=== PATIENT | female | born 1945 | race Caucasian/White ===

== ENCOUNTER 2016-06-20 16:23 | Emergency (ER) | payer MEDICARE ==
[~2016-06-20] VITALS: Ht 166.4 cm; Wt 65.5 kg
[~2016-06-20 16:23] MED LIST: LOV40 SUBQ; NICO1PAT5 TOPICAL; OXYC5TAB72 PO; POLY17PO6 PO; PREN1TAB25 PO; SENN-133 PO
[2016-06-20 16:26] VITALS: BP 194/103; PULSE 95; RESP 16; O2SAT 98
[2016-06-20 16:53] LABS: BASOPHILS % (AUTO) 0.2 % (0-3); EOSINOPHILS % (AUTO) 0.1 % (0-5); MONOCYTES % (AUTO) 3.1 % (4-12); Mean Corpuscular Hemoglobin 29.1 pg (27.0-35.0); Mean Corpuscular Volume 85.7 fL (81-100); NEUTROPHILS % (AUTO) 88.4 % (40-74); Platelet Count 461 bil/L (150-400)
[2016-06-20 17:13] LABS: Magnesium 1.6 mg/dL (1.6-2.6)
[2016-06-20] MEDS ORDERED: Ondansetron 2 mg/mL 2 mL Inj ONE (17:24)
--- NOTE | 2016-06-20 17:59 | ED.REPORT ---
HPI-General Illness Date of Service Jun 20, 2016 ED Provider: Dr. Efrem Mcarthur D.O. A 70 year old female with a medical history including hypertension, EDDY, peripheral vascular disease, osteoarthritis, and chronic hip pain presents to the ED with back pain and RUQ abdominal pain onset three weeks ago. The patient also reports nausea, vomiting, pleuritic pain, and occasional pain in her left breast. She has been seen at the [facility] ED and by her PCP since onset of symptoms. The patient takes prescribed oxycodone regularly (10mg qid) for hip pain after a fracture in 03/2015, but she has not taken this in 36 hours. She denies diarrhea, dysuria, or other symptoms. Nursing Notes Stated Complaint: PAIN UNDER RIBS TO BACK ON SHOULDER BLADE Chief Complaint: Female Abdominal Pain Nursing Notes Reviewed: Yes Allergies: Coded Allergies: No Known Allergies (Unverified , 06/20/16) Scheduled Enoxaparin (Lovenox) 40 Mg/0.4 Ml Syringe 40 MG SUBQ DAILY Nicotine 14 mg/24 hr Patch (Nicotine 14 mg/24 hr Patch) 1 Patch Patch 1 PATCH TOPICAL DAILY Vit#96/Ferrous Fum/FA ( Tablet) 1 Tablet Tablet 1 TABLET PO DAILY Scheduled PRN Polyethylene Glycol 3350 (Miralax) 17 Gm Powd.pack 17 GM PO DAILY PRN PRN For Constipation Sennosides (Senna) 8.6 Mg Tablet 17.2 MG PO BID PRN PRN For Constipation oxyCODONE (oxyCODONE) 5 Mg Tablet 5-10 MG PO Q6H PRN PRN FOR PAIN General Time Seen by MD: 17:58 Chief Complaint Abdominal pain (RUQ), Other (Back Pain) Hx Obtained From: Patient Arrived By: Walk-in Sudden in Onset?: Yes Onset Occurred: More than a week ago... (3 weeks) Symptom Duration: Since onset Location: : Abdomen (RUQ): Back: Chest (Left breast) Quality: Painful, Pleuritic Severity: Current: Moderate Severity: Maximum: Moderate Associated with: Reports: Nausea, Vomiting, Denies: Fever Pertinent Negative: Relieved by nothing Recent Healthcare: Recent doctor visit, Recent testing, Prior workup Similar Sx Previous: Yes Past Medical History Past Medical History Notes: Past Medical History Hx. Alcohol abuse Hypertension Patient reports EDDY Peripheral vascular disease Osteoarthritis, diffuse Chronic hip pain s/p fracture in 2014 Reports: Hypertension Past Surgical History Appendectomy Hysterectomy 2 elective abortions Rt elbow, unspecified surgery Lt knee surgery x [address] Dean (arthroscopy and Shepard cyst removal) Rt carpal tunnel release Smoking History Current Every Day Smoker Social History Alcohol Use: "Social" Drug Use: Denies drug use Other Social History: Ambulatory Status Independent Review of Systems Full Review of Systems Constitutional: Denies: Fever Respiratory: Reports: Pleuritic pain, Denies: Non-productive cough, Shortness of breath GI: Reports: Abdominal pain (RUQ), Nausea, Vomiting, Denies: Diarrhea Female: Denies: Dysuria Musculoskeletal: Reports: Back pain Complete sys rev & neg: except as marked. Physical Exam Vital Signs Vital Signs Date Time Temp Pulse Resp B/P Pulse Ox O2 Delivery O2 Flow Rate FiO2 06/20/16 23:50 68 24 147/62 98 Room Air 06/20/16 20:11 97 21 144/69 97 Room Air 06/20/16 16:26 36.1 95 16 194/103 98 Room Air Initial VS: Reviewed Head / Eyes: Atraumatic, Normocephalic ENT: Conjunctiva normal, No scleral icterus Neck: Supple, Full range of motion Respiratory: Breath sounds normal, Clear to auscultation, No respiratory distress Cardiovascular: Regular rate & rhythm, Heart sounds normal Skin: Warm, Dry Neurologic: Alert, Oriented, Nonfocal Psychiatric: Mood/affect normal, Behavior normal, Normal thought content General/Constitutional: Awake, Alert Distress / Hydration: Positive: Distress mild Abdomen: BS normoactive Tenderness/Guarding/Rebound: Positive: Guarding voluntary, Tender diffuse Interpretation & Diagnostics Lab Results Interpretation Result Diagram: 06/20/16 1641 06/20/16 1641 Test 06/20/16 16:41 06/20/16 16:48 06/20/16 22:27 06/20/16 22:52 White Blood Count 14.6th/mm3 (3.8-10.1) Red Blood Count 5.26mil/mm3 (3.90-5.20) Hemoglobin 15.3g/dL (12.0-15.6) Hematocrit 45.1% (35.0-46.0) Mean Corpuscular Volume 85.7fL (81-100) Mean Corpuscular Hemoglobin 29.1pg (27.0-35.0) Mean Corpuscular Hemoglobin Concent 33.9% (32.0-37.0) Red Cell Distribution Width 14.3% (12.3-15.4) Platelet Count 461bil/L (150-400) Neutrophils (%) (Auto) 88.4% (40-74) Lymphocytes (%) (Auto) 7.9% (14-46) Monocytes (%) (Auto) 3.1% (4-12) Eosinophils (%) (Auto) 0.1% (0-5) Basophils (%) (Auto) 0.2% (0-3) D-Dimer 1.3mg/L (<0.50) Sodium Level 127mEq/L (134-144) Potassium Level 3.3mEq/L (3.5-5.2) Chloride Level 86mEq/L (97-108) Carbon Dioxide Level 24mmol/L (18-29) Blood Urea Nitrogen 11mg/dL (8-27) Creatinine 0.54mg/dL (0.57-1.00) Estimat Glomerular Filtration Rate 160mL/min (>59) Glucose Level 149mg/dL (60-99) Calcium Level 9.4mg/dL (8.5-10.1) Magnesium Level 1.6mg/dL (1.6-2.6) Total Bilirubin 0.2mg/dL (0.0-1.2) Aspartate Amino Transf (AST/SGOT) 17U/L (0-50) Alanine Aminotransferase (ALT/SGPT) 10U/L (0-32) Alkaline Phosphatase 119U/L (25-165) Total Protein 8.5g/dL (6.4-8.4) Albumin 4.5g/dL (3.4-5.0) Lipase 16U/L (13-60) Hold [place] Top Tube Received (Received) Hold Purple Top Tube Received (Received) Hold Blue Top Tube Received (Received) Hold Red Top Tube Received (Received) Hold [place] Top Tube Received (Received) Urine Color Straw (YELLOW) Urine Appearance Slightly cloudy Urine pH 5.5 (5.0-8.0) Urine Specific [place] <1.005 (1.003-1.035) Urine Protein Negativemg/dL (NEG,TRACE) Urine Glucose (UA) Negativemg/dL (NEGATIVE) Urine Ketones Negativemg/dL (NEGATIVE) Urine Occult Blood Small (NEGATIVE) Urine Nitrite Negative (NEGATIVE) Urine Bilirubin Negative (NEGATIVE) Urine Urobilinogen Normalmg/dL (NORMAL) Urine Leukocyte Esterase Moderate (NEGATIVE) Urine RBC 0-2/hpf (0-2) Urine WBC 11-50/hpf (0-5) Urine Epithelial Cells Moderate/hpf (NONE-MOD) Urine Crystals None seen (NONE SEEN) Urine Bacteria Moderate/hpf (NONE-FEW) Urine Hyaline Casts None/lpf (NONE) Urine Granular Casts None seen (NONE SEEN) Urine Waxy Casts None seen (NONE SEEN) Urine Red Blood Cell Casts None seen (NONE SEEN) Urine White Blood Cell Casts None seen (NONE SEEN) Urine Mucus None seen (None Seen) Urine Trichomonas None seen (NONE SEEN) Urine Yeast None (NONE SEEN) Urinalysis Comment None Urine Culture Reflexed Indicated Troponin T 0.010ug/L (0.0-0.011) ECG Interpretation ECG Interpretation: Sinus rhythm rate [address] changes Time: 19:04 Interpreted by: ED physician CT Chest Interpretation IMPRESSION: 1. No acute process. 2. Small hiatal hernia. 3. Left apical lung nodule; followup is recommended as below. Fleischner Society criteria for SOLID lung nodule followup. Nodule size (mm)Low-risk patientHigh-risk [id number] follow-up neededFollow-up at 12 mo; if no change, no further follow-up>[id number] CT at 12 mo; if no change, no further follow-up needed.Initial follow-up CT at 6-12 mo, then 18-24 mo if no change. >6-8Initial follow-up CT at 6-12 mo, then 18-24 mo if no change. Initial follow-up CT at 3-6 mo, then 9-12 mo and 24 mo if no change. >8Follow-up CT at 3, 9, 24 mo. Or PET and/or biopsy.Same as for low-risk pts. Fleischner Society criteria for SUB-SOLID lung nodule followup. Solitary pure ground-glass nodules5 mm or lessNo followup needed. >5 mm3 mo follow-up CT to confirm persistence. Then annual CT for 3 years. Part-solid nodules3 mo follow-up CT to confirm persistence. If persistent with solid component <5 mm, annual CT for at least 3 years. If solid component is 5 mm or more, biopsy or surgical resection. Consider PET-CT for lesions > 10 mm. Multiple sub-solid nodulesPure ground glass nodules [address] at 2 and 4 years. Pure ground glass nodules >5 mm without dominant lesion. [address] to confirm persistence, then annual followup CT for at least 3 years. Dominant nodule(s) with part-solid or solid component. [address] to confirm persistence. If persistent, consider biopsy or surgical resection, loc if lesions have >5 mm solid component. Dictated by: Amador Moore M.D. on 06/20/2016 at 19:48 Study type: CT pulm angiogram Interpretation / Wet Read by: Interpret - Radiologist CT Abd / Pelvis Interpretation IMPRESSION: 1. No acute process. 2. Small hiatal hernia. Dictated by: Amador Moore M.D. on 06/20/2016 at 19:47 Study type: Abdominal CT IV contrast Re-Eval/Medical Decision Med Decision/Clinical Course CT chest abdomen pelvis were all reassuring. Surgical troponins were negative. PE ruled out. Acute abdomen ruled out. Patient is adequately treated. I suspect there is a component of opiate withdrawal. Her urine was infected. She received Rocephin. She will be on antibiotics and close outpatient follow- up. She feels comfortable going home taking her oxycodone now. At discharge she looked and felt much better. Source of Hx: Old records Time of Eval: 19:09 Patient Status: Condition improved Re-Evaluation/Progress Note: Patient rechecked. Time of Eval: 23:45 Patient Status: Condition improved Re-Evaluation/Progress Note: Patient is resting comfortably and ready to be discharged. Discussed with patient CT and lab results, diagnosis, and plan for discharge. Follow-up and return to the ER instructions given. Patient agrees with plan for care and all questions were addressed. Counseled Regarding: Diagnosis, Lab results, Need for follow-up, When/why to return to ED Discharge & Departure Primary Impression: Abdominal pain Abdominal location: generalized Qualified Code: R10.84 - Generalized abdominal pain Additional Impressions: Urinary tract infection Urinary tract infection type: acute cystitis Hematuria presence: without hematuria Qualified Code: N30.00 - Acute cystitis without hematuria Chest pain on breathing Disposition: Home Discharge Condition All VS Reviewed: Yes Condition: Improved Patient Instructions: Acute Abdominal Pain (ED), Chest Pain (ED), Urinary Tract Infection in Women (DC) Additional Instructions: The CAT scan of your chest did not show a blood clot. You do have a pulmonary nodule that will require follow-up imaging. Your primary care provider can set this up with you. Discuss this at your follow up appointment. The CAT scan of your abdomen did not show any acute pathology either. Your heart blood tests were normal. Your urine does show indicators of infection. Take your oxycodone as prescribed by Dr. Milian. Take Bactrim twice daily for [address] Milian's office tomorrow morning to set up a close follow-up. Do not drive tonight. Return if any problems or any worsening symptoms. Referrals: Chris Milian MD (PCP) Scribe Attestation Portions of this note were transcribed by Tricia Esparza. I, Dr. Mcarthur, personally performed the history, physical exam, and medical decision-making; I reviewed and confirmed the accuracy of the information in the transcribed note. Signed by: Franklin Mcintyre, 06/21/2016, 01:05 copies to: Chris Milian MD, Todd P DO Jun 20, 2016 17:59 TRICIA ESPARZA Jun 20, 2016 18:27
[2016-06-20] MEDS ORDERED: 0.9% Sodium Chloride 1,000 ML IV SCH (18:35)
[2016-06-20] MEDS ORDERED: Ondansetron 2 mg/mL 2 mL Inj IVPUSH PRN (18:35)
[2016-06-20] MEDS: HYDROmorphone 0.5 mg/0.5 mL iSecure Syringe IVPUSH PRN ×2 (19:15→21:26)
--- NOTE | 2016-06-20 19:50 | DRSVH ---
PROCEDURE: CT ABDOMEN AND PELVIS WITH CONTRAST ([id number]) INDICATIONS: pleuritic chest pain, abd pain, TECHNIQUE: After the administration of intravenous contrast, 5 mm thick sections acquired from the diaphragm to the symphysis. 5 mm coronal and sagittal reformats were acquired. For radiation dose reduction, the following was used: automated exposure control, adjustment of mA and/or kV according to patient siz e. COMPARISON: None. FINDINGS: Image quality: Excellent. ABDOMEN: Lung bases: Lung bases are clear. Heart size is normal. Solid organs: Liver and spleen are normal in size and enhancement. Gallbladder is within normal harris its. Biliary system is non dilated. Pancreas enhances normally. No adrenal nodules. Kidneys demon strate normal size and enhancement, without hydronephrosis. Peritoneum and bowel: Small hiatal hernia. Bowel loops demonstrate normal wall thickness and caliber . No free fluid or air. Nodes and vessels: No retroperitoneal or mesenteric adenopathy by size criteria. Aorta and inferior vena cava are normal in size. Miscellaneous: No ventral hernias. PELVIS: Genitourinary: Bladder wall thickness is normal. Miscellaneous: No inguinal hernias or adenopathy. Bones: No suspicious bony lesions. No vertebral body compression fractures. IMPRESSION: 1. No acute process. 2. Small hiatal hernia. Dictated by: Amador Moore M.D. on 06/20/2016 at 19:47 Approved by: Amador Moore M.D. on 06/20/2016 at 19:48
--- NOTE | 2016-06-20 19:52 | DRSVH ---
PROCEDURE: CT ANGIO CHEST PULMONARY EMBOLISM ([id number]) INDICATIONS: pleuritic chest pain, abd pain, TECHNIQUE: After the administration of intravenous contrast, 2 mm thick sections acquired from the pulmonary api mulu to the posterior costophrenic angles. 3-dimensional maximum intensity projection (MIP) coronal a nd sagittal reformats were then acquired through the thorax. For radiation dose reduction, the follo wing was used: automated exposure control, adjustment of mA and/or kV according to patient size. COMPARISON: None. FINDINGS: Image quality: Excellent. Pulmonary arteries: Pulmonary arteries are normal in size, and demonstrate no intraluminal filling d efects to suggest central pulmonary embolism. Lungs and pleura: 4 mm diameter nodule within the left lateral lung apex. No pleural effusions or pne umothorax. Central and peripheral airways are patent. Mediastinum: Heart size is normal, without pericardial effusion. No mediastinal or hilar adenopathy . Thoracic aorta is normal in caliber and enhancement. Esophagus is normal in caliber. There is a s mall hiatal hernia. Bones and chest wall: No suspicious bony lesions. Ribs and thoracic spine appear intact throughout. Thyroid gland is within normal limits. No axillary or supraclavicular adenopathy. Abdomen: Visualized upper abdominal solid organs appear normal in the early arterial phase of enhanc ement. IMPRESSION: 1. No acute process. 2. Small hiatal hernia. 3. Left apical lung nodule; followup is recommended as below. Fleischner Society criteria for SOLID lung nodule followup. Nodule size (mm)Low-risk patientHigh-risk [id number] follow-up neededFollow-up at 12 mo; if no tate e, no further follow-up>0-9Ovoful-aw CT at 12 mo; if no change, no further follow-up needed.Initial f ollow-up CT at 6-12 mo, then 18-24 mo if no change. >6-8Initial follow-up CT at 6-12 mo, then 18-24 mo if no change. Initial follow-up CT at 3-6 mo, then 9-12 mo and 24 mo if no change. >8Follow-up CT at 3, 9, 24 mo. Or PET and/or biopsy.Same as for low-risk pts. Fleischner Society criteria for SUB-SOLID lung nodule followup. Solitary pure ground-glass nodules5 mm or lessNo followup needed. >5 mm3 mo follow-up CT to confirm persistence. Then annual CT for 3 years. Part-solid nodules3 mo follow-up CT to confirm persistence . If persistent with solid component <5 mm, annual CT for at least 3 years. If solid component is 5 mm or more, biopsy or surgical resection. Consider PET-CT for lesions > 10 mm. Multiple sub-solid nodulesPure ground glass nodules [address] at 2 and 4 years. Pure ground glass nodules >5 mm without dominant lesion. [address] to confirm persistence, then annual followup CT for at least 3 years. Dominant nodule(s) with part-solid or solid component. [address] to confirm persistence. If persistent, consider biopsy or surgical resection, loc if lesions have >5 m m solid component. Dictated by: Amador Moore M.D. on 06/20/2016 at 19:48 Approved by: Amador Moore M.D. on 06/20/2016 at 19:50
[2016-06-20 20:11] VITALS: BP 144/69; PULSE 97; RESP 21; O2SAT 97
[2016-06-20 22:34] LABS: APPEARANCE,URINE SLIGHTLY CLOUDY (CLEAR,HAZY); COLOR,URINE STRAW (YELLOW); OCCULT BLOOD,URINE SMALL (NEGATIVE); PH,URINE 5.5 (5.0-8.0); UROBILINOGEN,URINE NORMAL (NORMAL)
[2016-06-20] MEDS ORDERED: cefTRIAXone Inj 2,000 MG in Dextrose 5% Minibag Plus 50 ML IV ONE (22:45)
[2016-06-20 23:50] VITALS: BP 147/62; PULSE 68; RESP 24; O2SAT 98
== END 2016-06-20 23:54 | disposition home or self-care (01) ==
LOC: SED 16:23
DX: R10.84 Generalized abdominal pain (principal); N30.00 Acute cystitis without hematuria; R07.1 Chest pain on breathing; I10 Essential (primary) hypertension; I73.9 Peripheral vascular disease, unspecified; K75.81 Nonalcoholic steatohepatitis (NASH); F17.200 Nicotine dependence, unspecified, uncomplicated; Z90.710 Acquired absence of both cervix and uterus
CPT/HCPCS: 36415; 71275; 74177; 80053; 81000; 83690; 83735; 84484; 85025; 85379; 87086; 87088; 93005; 96361; 96365; 96375; 96376; 99285; J0696; J1170; J2405; J7030; Q9967

== ENCOUNTER 2016-06-25 08:26 | Inpatient (IN) | payer MEDICARE ==
[~2016-06-25] VITALS: Ht 165.1 cm; Wt 64.3 kg
[2016-06-25 08:46] VITALS: BP 157/83; PULSE 81; RESP 18; O2SAT 97
[2016-06-25 09:35] LABS: APPEARANCE,URINE HAZY (CLEAR,HAZY); COLOR,URINE STRAW (YELLOW); PH,URINE 7.5 (5.0-8.0)
[2016-06-25 09:36] LABS: OCCULT BLOOD,URINE TRACE (NEGATIVE); UROBILINOGEN,URINE NORMAL (NORMAL)
--- NOTE | 2016-06-25 10:56 | ED.REPORT ---
HPI-Abd Pain F 40 and Over Date of Service Jun 25, 2016 ED Provider: Jazmín Nagy History of Present Illness: seen on 06/20/2016. dx with uti. some improvement for 2 to 3 days. pain in back returning and right upper quadrant back, then vomiting. Dr. Dobson is primary care in [facility]. normally healthy 01/29 Nursing Notes Stated Complaint: POSS KIDNEY INFECTION Chief Complaint: Female Abdominal Pain Nursing Notes Reviewed: Yes Allergies: Coded Allergies: No Known Allergies (Unverified , 06/25/16) Scheduled PRN Oxycodone (Roxicodone) 5 Mg Tablet 10 MG PO QID PRN PRN For Pain General Time Seen by MD: 10:49 Chief Complaint Abdominal pain Hx Obtained From: Patient Sudden in Onset?: No Onset Occurred: 1 week ago Symptom Duration: Since onset Severity: Current: Pain level 10 out of 10 Past Medical History Past Medical History Hx. Alcohol abuse Hypertension Patient reports EDDY Peripheral vascular disease Osteoarthritis, diffuse Chronic hip pain s/p fracture in 2014 Reports: Hypertension Past Surgical History Appendectomy Hysterectomy 2 elective abortions Rt elbow, unspecified surgery Lt knee surgery x [address] Dean (arthroscopy and Shepard cyst removal) Rt carpal tunnel release Smoking History Current Every Day Smoker Social History Alcohol Use: "Social" Drug Use: Denies drug use Other Social History: Ambulatory Status Independent Review of Systems Basic Review of Systems Eyes: Vision NL, No discharge Skin: No bruising, No rash, No itch Psychiatric: Normal thought content Physical Exam Vital Signs Vital Signs (First) Date Time Temp Pulse Resp B/P Pulse Ox O2 Delivery O2 Flow Rate FiO2 06/25/16 08:46 36.1 81 18 157/83 97 Initial VS: Reviewed, Vital signs normal Head / Eyes: Atraumatic ENT: Mucous membranes moist, Conjunctiva normal, No scleral icterus Neck: Supple, Non-tender, Full range of motion Lymphatic: No lymphadenopathy Extremities: Vascular intact, Neuro intact, No swelling, No tenderness Skin: Warm, Dry, No cyanosis Neurologic: Alert, Oriented, Nonfocal Psychiatric: Mood/affect normal, Behavior normal, Normal thought content General/Constitutional: Awake, Alert Distress / Hydration: Positive: Distress moderate Appearance / Presentation: Positive: Appears older than age Respiratory / Chest: Atraumatic, Breath sounds NL, Breath sounds = bilat, No respiratory distress Cardiovascular: Heart rate NL, Regular rhythm, Heart sounds NL Tenderness/Guarding/Rebound: Positive: Guarding voluntary, Rebound localized Bowel Sounds / Distention: Positive: Bowel sounds hyperactive (in upper abd), Bowel sounds hypoactive (hypo in lower abd), Distention mild pain to back also ENT: Atraumatic, Airway patent, Mucous membranes moist, Pharynx NL Interpretation & Diagnostics Interpretation & Diagnostics: INDICATIONS: rug pain TECHNIQUE: Real-time focused scanning was performed of the abdomen, with image documentation. COMPARISON: [facility], CT, CT ABD PELVIS W CON, 06/20/2016, 19:22. FINDINGS: Limited assessment demonstrates normal appearance of the gallbladder. No biliary dilatation. IMPRESSION: Normal ultrasound appearance of gallbladder. A cause for right upper quadrant pain is not identified on ultrasound. Lab Results Interpretation Result Diagram: 06/25/16 1130 06/25/16 1130 Test 06/25/16 09:00 06/25/16 11:30 Urine Color Straw (YELLOW) Urine Appearance Hazy (CLEAR,HAZY) Urine pH 7.5 (5.0-8.0) Urine Specific [place] 1.015 (1.003-1.035) Urine Protein Tracemg/dL (NEG,TRACE) Urine Glucose (UA) Negativemg/dL (NEGATIVE) Urine Ketones Negativemg/dL (NEGATIVE) Urine Occult Blood Trace (NEGATIVE) Urine Nitrite Negative (NEGATIVE) Urine Bilirubin Negative (NEGATIVE) Urine Urobilinogen Normalmg/dL (NORMAL) Urine Leukocyte Esterase Negative (NEGATIVE) Urine RBC 0-2/hpf (0-2) Urine WBC 0-5/hpf (0-5) Urine Epithelial Cells Occasional/hpf (NONE-MOD) Urine Crystals None seen (NONE SEEN) Urine Bacteria Few/hpf (NONE-FEW) Urine Hyaline Casts None/lpf (NONE) Urine Granular Casts None seen (NONE SEEN) Urine Waxy Casts None seen (NONE SEEN) Urine Red Blood Cell Casts None seen (NONE SEEN) Urine White Blood Cell Casts None seen (NONE SEEN) Urine Mucus None seen (None Seen) Urine Trichomonas None seen (NONE SEEN) Urine Yeast None (NONE SEEN) Urinalysis Comment None Urine Culture Reflexed Not indicated Hold Urine Received (Received) White Blood Count 11.7th/mm3 (3.8-10.1) Red Blood Count 4.91mil/mm3 (3.90-5.20) Hemoglobin 14.4g/dL (12.0-15.6) Hematocrit 43.0% (35.0-46.0) Mean Corpuscular Volume 87.6fL (81-100) Mean Corpuscular Hemoglobin 29.3pg (27.0-35.0) Mean Corpuscular Hemoglobin Concent 33.5% (32.0-37.0) Red Cell Distribution Width 14.7% (12.3-15.4) Platelet Count 412bil/L (150-400) Neutrophils (%) (Auto) 82.6% (40-74) Lymphocytes (%) (Auto) 11.1% (14-46) Monocytes (%) (Auto) 4.5% (4-12) Eosinophils (%) (Auto) 0.9% (0-5) Basophils (%) (Auto) 0.6% (0-3) Sodium Level 128mEq/L (134-144) Potassium Level 3.9mEq/L (3.5-5.2) Chloride Level 91mEq/L (97-108) Carbon Dioxide Level 22mmol/L (18-29) Blood Urea Nitrogen 8mg/dL (8-27) Creatinine 0.53mg/dL (0.57-1.00) Estimat Glomerular Filtration Rate 164mL/min (>59) Glucose Level 118mg/dL (60-99) Lactic Acid Level 0.9mmol/L (0.4-2.0) Calcium Level 9.3mg/dL (8.5-10.1) Total Bilirubin 0.3mg/dL (0.0-1.2) Aspartate Amino Transf (AST/SGOT) 18U/L (0-50) Alanine Aminotransferase (ALT/SGPT) 12U/L (0-32) Alkaline Phosphatase 110U/L (25-165) Total Protein 7.9g/dL (6.4-8.4) Albumin 4.4g/dL (3.4-5.0) Amylase Level 38U/L (28-100) Lipase 20U/L (13-60) Lab Results Interpretation: urine is clear, no sign of infection X-Ray Chest Interpretation Chest Xray Interpretation: OCEDURE: X-RAY CHEST ONE VIEW, PORTABLE ([id number]) INDICATIONS: Tube verification TECHNIQUE: One view of the chest was acquired. COMPARISON: None. FINDINGS: Surgical changes and devices: Nasogastric tube present tip traversing the GE junction and the side port likely positioned within the distal esophagus. Lungs and pleura: No pleural effusions or pneumothorax. Lungs are clear. Mediastinum: Mediastinal contours appear normal. Heart size is normal. Bones and chest wall: No suspicious bony lesions. Overlying soft tissues appear unremarkable. IMPRESSION: Nasogastric tube tip traversing the GE junction side-port projected over the distal esophagus. X-Ray Abdominal Interpretation INDICATIONS: abd pain TECHNIQUE: One view chest and two views of the abdomen were acquired. COMPARISON: None. FINDINGS: Surgical changes and devices: Multiple surgical clips and surgical sutures noted in the pelvis and right lower quadrant of abdomen. Patient status post ORIF of left femur fracture. Chest: Lungs are clear. Heart size is normal. No pleural effusions. No pneumoperitoneum. Abdomen: Mildly dilated loops of small bowel noted. Scattered air-fluid levels are noted. No suspicious calcifications. Visualized solid organ contours appear normal. Bones: No suspicious bony lesions. IMPRESSION: Findings suspicious for early or partial small bowel obstruction. Dictated by: Maria C Mullins MD, PhD on 06/25/2016 at 11:51 Approved by: Maria C Mullins MD, PhD on 06/25/2016 at 11:52 Re-Eval/Medical Decision Med Decision/Clinical Course 70 year old female returns with ongoing abd pain, back pain and vomiting time 2 today. Patient seen initially on 06/20/2016 for same symptoms, work up negative at that time except for UTI which was treated. Patient had symptom relief for a day or 2 with return of pain and vomiting. X-ray indicates small bowel obstruction. Exam is consistent with small bowel obstruction, no sign of appendicitis or inflammatory bowel disease. Discussed with Dr. Watson, does not feel this is surgical at this time. Will consult if needed. Discharge & Departure Primary Impression: Small bowel obstruction Disposition: ADMITTED TO HOSPITAL Referrals: Chris Milian MD (PCP) EDSupervising Provider for APC: Sachin Valladares MD copies to: Chris Milian MD, Sue ARNP Jun 25, 2016 10:56
[2016-06-25] MEDS ORDERED: 0.9% Sodium Chloride 1,000 ML IV ONE ×2 (11:00→12:15)
[2016-06-25] MEDS ORDERED: Ondansetron 2 mg/mL 2 mL Inj IVPUSH ONE (11:00)
[2016-06-25 11:47] LABS: BASOPHILS % (AUTO) 0.6 % (0-3); EOSINOPHILS % (AUTO) 0.9 % (0-5); MONOCYTES % (AUTO) 4.5 % (4-12); Mean Corpuscular Hemoglobin 29.3 pg (27.0-35.0); Mean Corpuscular Volume 87.6 fL (81-100); NEUTROPHILS % (AUTO) 82.6 % (40-74); Platelet Count 412 bil/L (150-400)
--- NOTE | 2016-06-25 11:54 | DRSVH ---
PROCEDURE: X-RAY ACUTE ABDOMINAL SERIES ([id number]) INDICATIONS: abd pain TECHNIQUE: One view chest and two views of the abdomen were acquired. COMPARISON: None. FINDINGS: Surgical changes and devices: Multiple surgical clips and surgical sutures noted in the pelvis and ri ght lower quadrant of abdomen. Patient status post ORIF of left femur fracture. Chest: Lungs are clear. Heart size is normal. No pleural effusions. No pneumoperitoneum. Abdomen: Mildly dilated loops of small bowel noted. Scattered air-fluid levels are noted. No suspicio us calcifications. Visualized solid organ contours appear normal. Bones: No suspicious bony lesions. IMPRESSION: Findings suspicious for early or partial small bowel obstruction. Dictated by: Maria C Mullins MD, PhD on 06/25/2016 at 11:51 Approved by: Maria C Mullins MD, PhD on 06/25/2016 at 11:52
--- NOTE | 2016-06-25 12:09 | DRSVH ---
PROCEDURE: US ABDOMEN, LIMITED ([id number]) INDICATIONS: rug pain TECHNIQUE: Real-time focused scanning was performed of the abdomen, with image documentation. COMPARISON: [facility], CT, CT ABD PELVIS W CON, 06/20/2016, 19:22. FINDINGS: Limited assessment demonstrates normal appearance of the gallbladder. No biliary dilatatio n. IMPRESSION: Normal ultrasound appearance of gallbladder. A cause for right upper quadrant pain is not identified on ultrasound. Dictated by: Prince Rivera Lis Interpreted: Elizabeth Garza MD on 06/25/2016 at 12:08 Transcribed by: SONY on 06/25/2016 at 12:09 Approved by: Elizabeth Garza M.D. on 06/25/2016 at 16:07
[2016-06-25] MEDS ORDERED: HYDROmorphone 0.5 mg/0.5 mL iSecure Syringe IVPUSH ONE (12:15)
[2016-06-25] MEDS ORDERED: OXYC-474 PO (13:54)
[2016-06-25 13:55] VITALS: BP 189/91; PULSE 83; RESP 18; O2SAT 96
--- NOTE | 2016-06-25 14:20 | NUR ---
admitted to room 1017 70 year female, having RUQ pain, R upper back pain, some nausea, has NG tube which does not appear to be functioning at this time. abd soft, hyper BTs
--- NOTE | 2016-06-25 14:42 | PCM.HPMED ---
Subjective Date of Service Jun 25, 2016 Primary Provider: Admitting Physician: Jorge Melara MD Primary Care Physician: Chris Milian MD Attending Physician: Jorge Melara MD Chief Complaint: Abdominal pain History of Present Illness: A 70 yo F w/ prior abdominal/pelvic surgery, HTN, EDDY, peripheral vascular disease, osteoarthritis, and chronic opioid use for hip pain. patient initially presented 5days ago to ED with abdominal pain for 3wks, with nausea, vomiting, pleuritic chest pain. CT with contrast chest, abd, pelvis ruled out organic causes, UA was positive, therefore d/lisa home with bactrim 7days. Since pt left hospital, back pain and RUQ pain continued, decided to come to hospital. pain was most severe on Lt back below shoulder blade, band- like sharp, radiated to R flank, RUQ, epigastric area. Lt side of back also started hurting,pt stated that back is not new but got worse pt also had difficulty of breathing due to pain, deep inspiration caused more pain. pt also had constant diarrhea due to bactrim given in ED 6days ago, although pt continued until yesterday, pt started having dry heaves multiple times since this AM. Patient was able to eat some until yesterday. pt took usual oxycodone qid but didn't tough his pain. pt denied palpitation, fever, chills, sick contacts, travel. Of note, pt takes oxycodone regularly (10mg qid) for hip pain after a fracture in 03/2015 ROS: no fever, chills, dysuria, frequency, urgency, chest pain, palpitation, sick contacts, travel. In ED, VS [id number], 81, 18, afebrile, 97%, Compared to labs 5days ago, labs notable for trending down wbc 14 to 11.7, stable hyponatremia/renal function, lactate, lipase WNL. UA few bact but no nitrite/leukEST, UCX from 06/20 grew mixed hawa. AXR showed possibl early partial SBO, ED provider spoke to , unlikely surgical candidate, recommended medical management. NG tube was being inserted in ED. Review of Systems: Pertinent positives as noted in history of present illness. All other systems were reviewed and are negative Allergies Coded Allergies: No Known Allergies (Unverified , 3/6/17) Home Medications oxycodone 10mg qid PMH PMH Past Medical History Alcohol abuse Patient reports EDDY Peripheral vascular disease. Osteoarthritis, diffuse Chronic urinary tract infections Surgical History Appendectomy Hysterectomy 2 elective abortions Rt elbow, unspecified surgery Lt knee surgery x [address] Dean (arthroscopy and Shepard cyst removal) Rt carpal tunnel release Family History Family History Father: "had a bad heart" and after 3 heart attacks at 63yo. History of alcoholism. Mother: Pancreatic cancer. No history of alcoholism. Brother: Diabetes Sister: Patient is not sure, and sister's apparently yesterday. 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 The relationship appears mildly strained.) Social History Hx Alcohol Use: Yes (2 per day, has done this "forever".) Hx Substance Use: No Hx Tobacco Use: Yes Smoking Status: Current Every Day Smoker Exam Vital Signs Vital Sign - Last Date Time Temp Pulse Resp B/P Pulse Ox O2 Delivery O2 Flow Rate FiO2 06/25/16 08:46 36.1 81 18 157/83 97 Exam NAD, comfortably laying down on the bed no JVD, MMM, no LAD RRR, nl s1, s2 no mrg CTAB, no w,c S,ND,NT,normoactive BS+ warm, no edema, pulses 2/2 Lab and Diagnostics Result Diagram: 06/25/16 1130 06/25/16 1130 Assessment & Plan A 70 yo F w/ prior abdominal/pelvic surgery, HTN, EDDY, peripheral vascular disease, osteoarthritis, and chronic opioid use for hip pain p/w progressively worsened back pain, abdominal pain. Acute, active abdominal pain, nausea, back pain, POA, likely due to partial SBO in the multiple abdominal surg, functional impairment with chronic opioid, unlikely other etiologies given UA, abd US unremarkable today, no obvious signs for surgery, lactate WNL. back pain seemed more chronic in nature, PE ruled out 5days ago, will see which w/u has been done in the past. -appreciate surgery input -NGT with low intermittent suction, I&O -NPO now, -serial abdominal exam, -continue bowel regimen -pain control with home opioid, dilaudid prn Chronic, stable HTN, diet controlled, hydralazine prn for SBP>180s, will consider oral agent of persistent chronic opioid use for hip pain, continue home dose PVD, not active dispo:Patient will be admitted with inpatient status with expectation of inpatient therapy for more than 2 midnights diet:NPO for now dvt ppx:LMWH Full code Time spent 65 minutes Jorge Melara MD Jun 25, 2016 13:04
[2016-06-25] MEDS: D5 0.45% NaCl + KCl 20 mEq/L 1,000 ML IV SCH (15:06)
[2016-06-25] MEDS: HYDROmorphone 1 mg/mL Inj IVPUSH PRN ×3 (15:11→21:44)
--- NOTE | 2016-06-25 15:42 | DRSVH ---
PROCEDURE: X-RAY CHEST ONE VIEW, PORTABLE ([id number]) INDICATIONS: Tube verification TECHNIQUE: One view of the chest was acquired. COMPARISON: None. FINDINGS: Surgical changes and devices: Nasogastric tube present tip traversing the GE junction and the side po rt likely positioned within the distal esophagus. Lungs and pleura: No pleural effusions or pneumothorax. Lungs are clear. Mediastinum: Mediastinal contours appear normal. Heart size is normal. Bones and chest wall: No suspicious bony lesions. Overlying soft tissues appear unremarkable. IMPRESSION: Nasogastric tube tip traversing the GE junction side-port projected over the distal esoph ha. Dictated by: Prince Rivera RRA Interpreted: Maria C Mullins MD on 06/25/2016 at 15:37 Transcribed by: STEW on 06/25/2016 at 15:38 Approved by: Maria C Mullins MD, PhD on 06/25/2016 at 16:37
--- NOTE | 2016-06-25 16:35 | PCM.CONSUR ---
Subjective Date of Service: Jun 25, 2016 History of Present Illness 70yo female with a history of chronic opioid use for low back/left hip pain, EDDY, HTN and prior abdominal surgeries including: hysterectomy, exploratory laparotomy and appendectomy who presented to the ED c/o abdominal pain, nausea and vomiting for the past week. She describes the pain as sharp with radiation to her right side and states that her pain is not relieved with home dose of oxycodone (10mg PO qid). Of note she presented to the ED five days ago with a three week hx of RUQ abdominal pain, nausea, vomiting, and pleuritic chest pain. Evaluation at that time including a CT chest, abdomen and pelvis were all unremarkable. However, urine analysis was consistent with a UTI and she was discharged with a 7day supply of Bactrim with outpatient follow up planned. She states that her symptoms improved initially after starting the antibiotic but in the past couple of days she feels the antibiotic resulted in diarrhea. She notes her last bowel movement was last night and she endorses diarrhea, bloating and excess gas for the past several days. In the ED, she was afebrile and hypertensive with a blood pressure of 157/83, pulse of 81 and SpO2 of 97% on room air with a respiratory rate of 18. Abdominal xray showed mildly dilated loops of small bowel concerning for early or partial small bowel obstruction. . Reason for Consultation Concern for partial small bowel obstruction Allergy Allergies: Coded Allergies: No Known Allergies (Unverified , 06/25/16) Medications Hypertension Medication: No Home Meds Incl Beta Blockers: No Oxycodone (Roxicodone) 5 Mg Tablet 10 MG PO QID PRN PRN For Pain (Reported) Last Taken: Unknown Dose on 06/25/16 0430 Discontinued Medications Enoxaparin (Lovenox) 40 Mg/0.4 Ml Syringe 40 MG SUBQ DAILY Prescribed by: VINEET LOGAN MD Nicotine 14 mg/24 hr Patch (Nicotine 14 mg/24 hr Patch) 1 Patch Patch 1 PATCH TOPICAL DAILY Prescribed by: VINEET LOGAN MD Polyethylene Glycol 3350 (Miralax) 17 Gm Powd.pack 17 GM PO DAILY PRN PRN For Constipation Prescribed by: VINEET LOGAN MD Vit#96/Ferrous Fum/FA ( Tablet) 1 Tablet Tablet 1 TABLET PO DAILY Prescribed by: VINEET LOGAN MD Sennosides (Senna) 8.6 Mg Tablet 17.2 MG PO BID PRN PRN For Constipation Prescribed by: VINEET LOGAN MD oxyCODONE (oxyCODONE) 5 Mg Tablet 5-10 MG PO Q6H PRN PRN FOR PAIN Prescribed by: VINEET LOGAN MD Past Surgical History Surgeries: Yes (Hysterectomy, Surgery on right arm , Ruptured appy) Patient/Family Past Surgical: Positive for:: Anesthesia Reactions (Woke up in the middle of the surgery), Denies:: Blood Transfuse Reaction, Blood Transfusions Social History Hx Alcohol Use: Yes (2 per day, has done this "forever".) Hx Substance Use: No Hx Tobacco Use: Yes PMH HEENT History History of ENT Problems?: Yes HEENT History: Positive for:: Cataracts Denies:: Dysphagia Sinus Problem Cardiovascular History History of Heart Problems?: No Respiratory History of Respiratory Problem: Yes Respiratory History: Positive for:: Pneumonia Denies:: Asthma COPD Chest Surgery Dyspnea Emphysema Hemoptysis Tuberculosis Neurological History Hx Neurologic Problems?: No Neurological History: Denies:: CVA Dizziness Gastrointestinal History HX of GI Problems?: No Genitourinary History Hx of Gu Problems?: Yes Genitourinary History: Positive for: Urinary Tract Infection (Had surgery to correct "Opened the urethra") Denies: HX of Hemodialysis Kidney Stones Female/Male History Reproductive History Female: Positive for: Problems with Breasts? (Lumpectomy was benign) Denies: Currently ? Endometriosis Pelvic Inflammatory DX Musculoskeletal History Hx Musculoskeletal Problems?: Yes Musculoskeletal History: Denies:: Back Injury Joint Replacement Musculoskeletal Trauma Psycho Social History Hx of Psycho/Social Problems?: No Other History Hx Any Other Health Problems?: No Other History: Denies:: Cancer Hospitalization Thyroid Disease Diabetes: No Other History/Comments History of alcohol abuse Hypertension EDDY Peripheral vascular disease Osteoarthritis, diffuse Chronic hip pain s/p fracture in 2014 Surgical history: Appendectomy Hysterectomy 2 elective abortions Right elbow, unspecified surgery Left knee surgery x [address] Dean (arthroscopy and Shepard cyst removal) Left hip fracture s/p ORIF Rt carpal tunnel release Social History Hx Alcohol Use: Yes (2 per day, has done this "forever".)Hx Substance Use: No Hx Tobacco Use: Yes Smoking Status: Current Every Day Smoker Living Arrangement: with Family Objective Exam Vital Signs & I/O Vital Sign- Last 8 Hours Date Time Temp Pulse Resp B/P Pulse Ox O2 Delivery O2 Flow Rate FiO2 06/25/16 08:46 36.1 81 18 157/83 97 Lab & Micro Results Laboratory Tests Test 06/25/16 09:00 06/25/16 11:30 Urine Color Straw (YELLOW) Urine Appearance Hazy (CLEAR,HAZY) Urine pH 7.5 (5.0-8.0) Urine Specific [place] 1.015 (1.003-1.035) Urine Protein Tracemg/dL (NEG,TRACE) Urine Glucose (UA) Negativemg/dL (NEGATIVE) Urine Ketones Negativemg/dL (NEGATIVE) Urine Occult Blood Trace (NEGATIVE) Urine Nitrite Negative (NEGATIVE) Urine Bilirubin Negative (NEGATIVE) Urine Urobilinogen Normalmg/dL (NORMAL) Urine Leukocyte Esterase Negative (NEGATIVE) Urine RBC 0-2/hpf (0-2) Urine WBC 0-5/hpf (0-5) Urine Epithelial Cells Occasional/hpf (NONE-MOD) Urine Crystals None seen (NONE SEEN) Urine Bacteria Few/hpf (NONE-FEW) Urine Hyaline Casts None/lpf (NONE) Urine Granular Casts None seen (NONE SEEN) Urine Waxy Casts None seen (NONE SEEN) Urine Red Blood Cell Casts None seen (NONE SEEN) Urine White Blood Cell Casts None seen (NONE SEEN) Urine Mucus None seen (None Seen) Urine Trichomonas None seen (NONE SEEN) Urine Yeast None (NONE SEEN) Urinalysis Comment None Urine Culture Reflexed Not indicated Hold Urine Received (Received) White Blood Count 11.7th/mm3 (3.8-10.1) Red Blood Count 4.91mil/mm3 (3.90-5.20) Hemoglobin 14.4g/dL (12.0-15.6) Hematocrit 43.0% (35.0-46.0) Mean Corpuscular Volume 87.6fL (81-100) Mean Corpuscular Hemoglobin 29.3pg (27.0-35.0) Mean Corpuscular Hemoglobin Concent 33.5% (32.0-37.0) Red Cell Distribution Width 14.7% (12.3-15.4) Platelet Count 412bil/L (150-400) Neutrophils (%) (Auto) 82.6% (40-74) Lymphocytes (%) (Auto) 11.1% (14-46) Monocytes (%) (Auto) 4.5% (4-12) Eosinophils (%) (Auto) 0.9% (0-5) Basophils (%) (Auto) 0.6% (0-3) Sodium Level 128mEq/L (134-144) Potassium Level 3.9mEq/L (3.5-5.2) Chloride Level 91mEq/L (97-108) Carbon Dioxide Level 22mmol/L (18-29) Blood Urea Nitrogen 8mg/dL (8-27) Creatinine 0.53mg/dL (0.57-1.00) Estimat Glomerular Filtration Rate 164mL/min (>59) Glucose Level 118mg/dL (60-99) Lactic Acid Level 0.9mmol/L (0.4-2.0) Calcium Level 9.3mg/dL (8.5-10.1) Total Bilirubin 0.3mg/dL (0.0-1.2) Aspartate Amino Transf (AST/SGOT) 18U/L (0-50) Alanine Aminotransferase (ALT/SGPT) 12U/L (0-32) Alkaline Phosphatase 110U/L (25-165) Total Protein 7.9g/dL (6.4-8.4) Albumin 4.4g/dL (3.4-5.0) Amylase Level 38U/L (28-100) Lipase 20U/L (13-60) Result Diagram: 06/25/16 1130 06/25/16 1130 Review of Systems: Constitutional: Negative, except as otherwise mentioned in the history above. Ophthalmologic: Negative, except as otherwise mentioned in the history above. Cardiovascular: Negative, except as otherwise mentioned in the history above. Respiratory: Negative, except as otherwise mentioned in the history above. Gastrointestinal: Negative, except as otherwise mentioned in the history above. Genitourinary: Negative, except as otherwise mentioned in the history above. Musculoskeletal: Negative, except as otherwise mentioned in the history above. Neurological: Negative, except as otherwise mentioned in the history above. Psychiatric: Negative, except as otherwise mentioned in the history above. Hematologic/Lymphatic: Negative, except as otherwise mentioned in the history above. Allergic/Immunologic: Negative, except as otherwise mentioned in the history above. H&P Surgical Exam Exam General: Alert, Oriented X3 HEENT: Within normal limits & unremarkable Respiratory: Clear to Auscultation Cardiac: Exam Unremarkable Abdomen: Normal bowel sounds (midline laparotomy incision scar), Soft ( diffusely tender to palpation, R>L ), No hepatosplenomegaly Assessment & Plan Assessment 70yo female w/ a hx of chronic opioid use for low back/left hip pain and prior abdominal surgeries including: hysterectomy, exploratory laparotomy and appendectomy who presented to the ED c/o RUQ, N/V and admitted for possible partial SBO after abdominal plain film showed mildly dilated loops of small bowel. RUQ and right flank pain likely multifactorial and secondary to opioid induced ileus and recent antibiotic use for UTI. No surgical cause for patients pain identified at this time. Pain Evaluation: Adequate Pain Control VTE Prophylaxis: Sub-Q Enoxaparin Plan: - Will continue to monitor the patient overnight with NG tube placed to suction , will likely discontinue later this evening if continues to have minimal output. - Repeat abdominal xrays tomorrow AM Resuscitation Status: CPR: Attempt Resuscitation Attending Statement: I personally interviewed and examined the pt, and I agree with Dr. Ortiz's assessment and plan. Shira Ortiz DO Jun 25, 2016 13:35 Efren Watson MD Jun 28, 2016 14:13
[2016-06-25] MEDS: Famotidine Inj 20 MG in IV Premix 1 EACH IV SCH (19:34)
[2016-06-25 19:55] VITALS: BP 154/82; PULSE 72; RESP 16; O2SAT 95
[2016-06-25] MEDS: Senna-Docusate 8.6-50 mg Tablet PO SCH (20:14)
[2016-06-25] MEDS: Ondansetron 2 mg/mL 2 mL Inj IVPUSH PRN (23:34)
--- NOTE | 2016-06-25 23:36 | NUR ---
pain/nausea: pt. encouraged to decrease water intake, ng tube cannister mostly full of water, pt. c/o nausea, zofran given, c/o pain, 1mg iv dilaudid given 2 hrs ago, pt. states pain is also in her back.
[2016-06-26] VITALS: BP 150/77; PULSE 72; RESP 16; O2SAT 94
[2016-06-26] MEDS: D5 0.45% NaCl + KCl 20 mEq/L 1,000 ML IV SCH ×3 (01:22→19:53)
[2016-06-26] MEDS: HYDROmorphone 1 mg/mL Inj IVPUSH PRN ×6 (01:23→22:44)
[2016-06-26] MEDS: Ondansetron 2 mg/mL 2 mL Inj IVPUSH PRN ×3 (04:12→21:56)
[2016-06-26 05:51] VITALS: BP 138/70; PULSE 74; RESP 16; O2SAT 95
[2016-06-26 07:10] LABS: BASOPHILS % (AUTO) 0.5 % (0-3); EOSINOPHILS % (AUTO) 1.7 % (0-5); MONOCYTES % (AUTO) 8.9 % (4-12); Mean Corpuscular Hemoglobin 29.4 pg (27.0-35.0); Mean Corpuscular Volume 87.4 fL (81-100); Platelet Count 426 bil/L (150-400)
[2016-06-26 07:57] LABS: Magnesium 1.7 mg/dL (1.6-2.6); Phosphorus 3.8 mg/dL (2.5-4.9)
[2016-06-26] MEDS: Senna-Docusate 8.6-50 mg Tablet PO SCH ×2 (08:30→21:56)
[2016-06-26] MEDS: Polyethylene Glycol (PEG) 17 Gm Powder PO SCH (08:30)
[2016-06-26] MEDS: Famotidine Inj 20 MG in IV Premix 1 EACH IV SCH ×2 (08:37→21:56)
--- NOTE | 2016-06-26 09:46 | PCM.PNSURG ---
Subjective Date of Service: Jun 26, 2016 Visit Information: Reason for Visit: Possible partial SBO Date of Admission: Jun 25, 2016 at 12:57 Hospital Day #2 Subjective: Pt reports having a 'bad night' which she attributes to ongoing abd pain and cramping as well as right-sided flank/back pain. She is found this morning ambulating in her room and is anxious to use the bathroom to urinate, no bowel movement reported but she is passing gas. She remains NPO with NG tube in place and notes nausea but no vomiting. NG tube with ~200mls output overnight. . Postop General: No Shortness of Breath, No Chest Pain Gastrointestinal: Passing Flatus Pain Management: PO, IV Push (for breakthrough) Postop Activity: Ambulating in Room Only Objective Vital Sign- Last 8 Hours Date Time Temp Pulse Resp B/P Pulse Ox O2 Delivery O2 Flow Rate FiO2 06/26/16 05:51 36.4 74 16 138/70 95 Room Air Intake and Output- Last 8 Hour 06/26/16 Cumulative From/Thru 07:00 06/25/16 08:46 - 06/26/16 06:05 Intake Total 1541 ml 1741 ml Output Total 1050 ml 2050 ml Balance 491 ml -309 ml Intake Oral 50 ml 250 ml IV Total 1491 ml 1491 ml Output Urine Total 850 ml 1650 ml Gastric Drainage Total 200 ml 400 ml # Bowel Movements 0 0 General: Alert, Oriented X3 Abdomen: Soft (diffusely tender, R>L), Non-distended Neuro: Grossly Neurologically Intact Result Diagram: 06/26/16 0650 06/26/16 0650 Assessment & Plan Impression 70yo female w/ a hx of chronic opioid use for low back/left hip pain, recent UTI tx w/Bactrim and prior abdominal surgeries including: hysterectomy, exploratory laparotomy and appendectomy who presented to the ED c/o RUQ, N/V and subsequently admitted for possible partial SBO after abdominal plain film showed mildly dilated loops of small bowel. RUQ and right flank pain likely multifactorial and secondary to opioid induced ileus and recent antibiotic use for UTI. Pt continues to report significant abd pain. No bowel movement reported but she is passing gas and endorses diarrhea the night before admission. Suspect pain will improve as ileus resolves. However , pain control will be difficult due to patient's history of chronic opioid use with habituation. Repeat abd films showing air throughout small bowel and colon consistent with ileus. Problems: Plan - No surgical intervention at this time. - Clamp NG tube, check gastric residual after 4hrs. - Repeat abdominal xrays tomorrow morning. - Continue conservative/symptomatic management and advance diet as ileus resolves. - Encourage ambulation. VTE Prophylaxis: Sub-Q Enoxaparin Resuscitation Status: CPR: Attempt Resuscitation Attending Statement: I agree with Dr. Ortiz's assessment and plan. Shira Ortiz DO Jun 26, 2016 09:46 Efren Watson MD Jun 28, 2016 14:16
--- NOTE | 2016-06-26 10:52 | DRSVH ---
PROCEDURE: X-RAY ABDOMEN WITH ERECT AND/OR DECUBITUS VIEWS ([id number]) INDICATIONS: f/u pbso vs ileus TECHNIQUE: 2 views of the abdomen were acquired. COMPARISON: [facility], CR, XR ABD ACUTE SERIES 3VW, 06/25/2016, 11:15. FINDINGS: Surgical changes and devices: Multiple surgical clips and surgical sutures noted in the pelvis and ri ght lower quadrant of abdomen. Patient status post ORIF of left femur fracture. Chest: Lungs are clear. Heart size is normal. No pleural effusions. No pneumoperitoneum. Abdomen: Mildly dilated loops of small bowel noted. Scattered air-fluid levels are noted. No suspicio us calcifications. Visualized solid organ contours appear normal. Bones: No suspicious bony lesions. IMPRESSION: Persistent partial small bowel obstructive pattern no significant change from prior exami nation. Dictated by: Prince Rivera [facility] Interpreted: Marleny Gant MD on 06/26/2016 at 10:51 Transcribed by: SIVA on 06/26/2016 at 10:52 Approved by: Marleny Gant M.D. on 06/28/2016 at 16:09
--- NOTE | 2016-06-26 14:01 | PCM.PNMED ---
Subjective Date of Service Jun 26, 2016 Subjective gastric outpu 850cc, watery and biliary fluid was noticed on suction. reported that pt drank water a lot still in severe back pain, thinks that belly pain is also similar NG was continued and clamped per surgery repeat AXR showed persistent SBO, kept in NPO pt stated that she was seen by pain clinic, had ?steroid injection on her back twice, after second time, back pain aggravated. Exam Vital Signs Vital Sign - Last Date Time Temp Pulse Resp B/P Pulse Ox O2 Delivery O2 Flow Rate FiO2 06/26/16 05:51 36.4 74 16 138/70 95 Room Air Intake and Output 06/25/16 06/25/16 06/26/16 Cumulative From/Thru 15:00 23:00 07:00 06/25/16 08:46 - 06/26/16 06:05 Intake Total 200 ml 1541 ml 1741 ml Output Total 1000 ml 1050 ml 2050 ml Balance -800 ml 491 ml -309 ml Intake Oral 200 ml 50 ml 250 ml IV Total 1491 ml 1491 ml Output Urine Total 800 ml 850 ml 1650 ml Gastric Drainage Total 200 ml 200 ml 400 ml # Bowel Movements 0 0 Exam NAD, comfortably laying down on the bed no JVD, MMM, no LAD RRR, nl s1, s2 no mrg CTAB, no w,c S,ND,epigastric tenderness/RUQ, normoactive BS+, no CVAT warm, no edema, pulses 2/2 MSK: ttp on bilateral mid throracic paraspinal area, no ttp on spines. IVs and Medications Medications Reviewed: Medications were reviewed in detail Lab and Diagnostics Result Diagram: 06/26/16 0650 06/26/16 0650 Assessment & Plan A 70 yo F w/ prior abdominal/pelvic surgery, HTN, EDDY, peripheral vascular disease, osteoarthritis, and chronic opioid use for hip pain p/w progressively worsened back pain, abdominal pain. Acute, active abdominal pain, nausea, back pain, POA, likely due to partial SBO in the multiple abdominal surg, functional impairment with chronic opioid, unlikely other etiologies given UA, abd US unremarkable today, no obvious signs for surgery, lactate WNL. back pain seemed more chronic in nature, PE ruled out 5days ago, will see which w/u has been done in the past. repeat AXR 06/26 showed persistent SBO -pt clinically not grossly changed, likely due to noncompliance, -appreciate surgery input -NGT with low intermittent suction, I&O -NPO now, -serial abdominal exam, -continue bowel regimen -pain control with home opioid, dilaudid prn Chronic, stable HTN, diet controlled, hydralazine prn for SBP>180s, will consider oral agent if persistent chronic opioid use for hip pain, continue home dose PVD, not active dispo:likely 2-3more days given slow progress diet:NPO for now dvt ppx:LMWH Full code VTE Prophylaxis: Sub-Q Enoxaparin Resuscitation Status: CPR: Attempt Resuscitation Time spent 35min Jorge Melara MD Jun 26, 2016 14:01
--- NOTE | 2016-06-26 15:01 | NUR ---
NG tube clamped, residual NG tube clamped for four hours per orders. Residual checked and found to be 30ml. Care is ongoing.
[2016-06-26 15:03] VITALS: BP 124/69; PULSE 57; RESP 18; O2SAT 97
--- NOTE | 2016-06-26 15:37 | NUR ---
Social Work- Initial Assessment Data: See Initial Assessment. Pt is a 70 year old woman admitted 06/25/16 for SBO per H&P. Pt's insurance is [email or web address] and PCP is Chris Milian MD. SW spoke with pt and at bedside regarding discharge plan, SW role explained. Pt was alert and oriented x3. Pt resides in [place] with her where she remains independent with her ADLs. [place] and does not drive. Pt has no HH or SNF history Pt has [employer] benefits and LTC benefits. SW encouraged pt to complete DPOA paperwork and bring a copy to the hospital to be put on file. Pt to discharge home with to transport via POV. No anticipated discharge needs. SW will continue to follow. Assessment: [place]. Plan: Pt to discharge home with to transport via POV. No anticipated discharge needs.SW will continue to follow. MIRI Watkins Addendum: 06/26/16 at 1541 by ACACIA HARMON Amended: Links added.
--- NOTE | 2016-06-26 19:27 | NUR ---
Pain, Nausea Patient continues to have some pain and nausea this shift. Ordered pain and nausea medications administered, patient states these relieve symptoms. Care is ongoing.
[2016-06-26 20:59] VITALS: BP 137/74; PULSE 68; RESP 20; O2SAT 95
[2016-06-27] MEDS: Ondansetron 2 mg/mL 2 mL Inj IVPUSH PRN ×4 (02:11→22:49)
[2016-06-27] MEDS: HYDROmorphone 1 mg/mL Inj IVPUSH PRN ×8 (03:28→22:49)
--- NOTE | 2016-06-27 04:39 | NUR ---
Pain/nausea and vomiting/activity Pt continues to have abdominal pain /, PRN dilaudid being used to help control. Pt has had nausea and vomiting this shift, rec'd zofran x2 doses which is effective. Pt was up early in shift ambulating around unit
[2016-06-27 05:13] VITALS: BP 170/83; PULSE 67; RESP 16; O2SAT 97
[2016-06-27] MEDS: D5 0.45% NaCl + KCl 20 mEq/L 1,000 ML IV SCH ×3 (06:01→15:46)
[2016-06-27 06:59] LABS: BASOPHILS % (AUTO) 0.4 % (0-3); EOSINOPHILS % (AUTO) 1.7 % (0-5); MONOCYTES % (AUTO) 9.2 % (4-12); Mean Corpuscular Hemoglobin 28.8 pg (27.0-35.0); Mean Corpuscular Volume 89.9 fL (81-100); Platelet Count 405 bil/L (150-400)
[2016-06-27 07:16] LABS: Magnesium 1.7 mg/dL (1.6-2.6); Phosphorus 3.9 mg/dL (2.5-4.9)
--- NOTE | 2016-06-27 08:06 | PCM.PNSURG ---
Subjective Date of Service: Jun 27, 2016 Visit Information: Reason for Visit: Possible partial SBO Date of Admission: Jun 25, 2016 at 12:57 Hospital Day #3 Subjective: Pt continues to pass gas but has not had a bowel movement. She reports persistent nausea and abdominal pain, stating that her pain is intolerable without Dilaudid. She is ambulating without difficulty and NG tube remains clamped. Per nursing pain well controlled w/Dilaudid prn. Received 4mg zofran x2 overnight for persistent nausea. NG tube clamped late yesterday afternoon with ~30mls output on residual check. . Postop General: No Shortness of Breath, No Chest Pain Gastrointestinal: Passing Flatus, Complains of Nausea Pain Management: PO, IV Push Postop Activity: Ambulating Independently Objective Vital Sign- Last 8 Hours Date Time Temp Pulse Resp B/P Pulse Ox O2 Delivery O2 Flow Rate FiO2 06/27/16 05:13 36.6 67 16 170/83 97 Room Air Intake and Output- Last 8 Hour 06/27/16 Cumulative From/Thru 07:00 06/25/16 08:46 - 06/27/16 05:49 Intake Total 1005 ml 4055 ml Output Total 750 ml 3780 ml Balance 255 ml 275 ml Intake Oral 0 ml 250 ml IV Total 1005 ml 3805 ml Output Urine Total 750 ml 3300 ml Gastric Drainage Total 480 ml # Bowel Movements 0 0 General: Alert, Oriented X3 Lungs: Clear to Auscultation Heart: Exam Unremarkable Abdomen: Soft (mildly distended & diffusely tender to palpation. Bowel tones present. ) Extremities: Warm, Thigh&Calf Soft/Nontender Neuro: Grossly Neurologically Intact Result Diagram: 06/27/16 0610 06/27/16 0610 Lab & Micro Results: Laboratory Tests Test 06/27/16 06:10 White Blood Count 11.1th/mm3 (3.8-10.1) Red Blood Count 4.37mil/mm3 (3.90-5.20) Hemoglobin 12.6g/dL (12.0-15.6) Hematocrit 39.3% (35.0-46.0) Mean Corpuscular Volume 89.9fL (81-100) Mean Corpuscular Hemoglobin 28.8pg (27.0-35.0) Mean Corpuscular Hemoglobin Concent 32.1% (32.0-37.0) Red Cell Distribution Width 14.4% (12.3-15.4) Platelet Count 405bil/L (150-400) Neutrophils (%) (Auto) 72.0% (40-74) Lymphocytes (%) (Auto) 16.5% (14-46) Monocytes (%) (Auto) 9.2% (4-12) Eosinophils (%) (Auto) 1.7% (0-5) Basophils (%) (Auto) 0.4% (0-3) Sodium Level 130mEq/L (134-144) Potassium Level 4.8mEq/L (3.5-5.2) Chloride Level 96mEq/L (97-108) Carbon Dioxide Level 24mmol/L (18-29) Blood Urea Nitrogen 8mg/dL (8-27) Creatinine 0.54mg/dL (0.57-1.00) Estimat Glomerular Filtration Rate 160mL/min (>59) Glucose Level 122mg/dL (60-99) Calcium Level 9.0mg/dL (8.5-10.1) Phosphorus Level 3.9mg/dL (2.5-4.9) Magnesium Level 1.7mg/dL (1.6-2.6) Total Bilirubin 0.3mg/dL (0.0-1.2) Aspartate Amino Transf (AST/SGOT) 13U/L (0-50) Alanine Aminotransferase (ALT/SGPT) 9U/L (0-32) Alkaline Phosphatase 94U/L (25-165) Total Protein 6.5g/dL (6.4-8.4) Albumin 3.9g/dL (3.4-5.0) Diagnostics: X-RAY ABDOMEN WITH ERECT AND/OR DECUBITUS VIEWS (06/26/16) FINDINGS: -Surgical changes and devices: Multiple surgical clips and surgical sutures noted in the pelvis and right lower quadrant of abdomen. Patient status post ORIF of left femur fracture. -Chest: Lungs are clear. Heart size is normal. No pleural effusions. No pneumoperitoneum. -Abdomen: Mildly dilated loops of small bowel noted. Scattered air-fluid levels are noted. No suspicious calcifications. Visualized solid organ contours appear normal. -Bones: No suspicious bony lesions. IMPRESSION: Persistent partial small bowel obstructive pattern no significant change from prior examination. Dictated by: Prince Rivera RRA Interpreted: Marleny Gant MD on 06/26/2016 at 10: 51 Transcribed by: SIVA on 06/26/2016 at 10:52 . Assessment & Plan Impression 70yo female w/ a hx of chronic opioid use for low back/left hip pain, recent UTI tx w/Bactrim and prior abdominal surgeries including: hysterectomy, exploratory laparotomy and appendectomy who presented to the ED c/o RUQ pain, N/ V and subsequently admitted for possible partial SBO after abdominal plain film showed mildly dilated loops of small bowel. RUQ and right flank pain likely multifactorial and secondary to opioid induced ileus and recent antibiotic use for UTI. Pt continues to report significant abd pain. No bowel movement reported but she is passing gas and endorses diarrhea the night before admission. Suspect pain will improve as ileus/partial SBO resolves. However, pain control will be difficult due to patient's history of chronic opioid use with habituation. Repeat abd films 06/26/16 showing persistent partial small bowel obstructive pattern and no significant change from prior examination. Problems: Plan - NG tube with ~850mls watery output yesterday and NG tube clamped late in the afternoon. - Pt kept NPO overnight and NG tube remained clamped w/~30mls residual output. - Repeat abdominal xrays showing persistent pSBO. NG tube appears to be in duodenum. - Unclamp NGT, pull back and place to suction. Keep pt NPO. - F/u abdominal xrays tomorrow AM - Continue conservative/symptomatic management and advance diet as ileus/ partial SBO resolves. - Encourage ambulation, may unclamp NGT to ambulate. VTE Prophylaxis: Sub-Q Enoxaparin Resuscitation Status: CPR: Attempt Resuscitation Attending Statement: I examined the pt and I agree with Dr. Ortiz's assessment and plan. Shira Ortiz DO Jun 27, 2016 08:06 Efren Watson MD Jul 11, 2016 11:05
[2016-06-27] MEDS: Polyethylene Glycol (PEG) 17 Gm Powder PO SCH (08:30)
[2016-06-27] MEDS: Senna-Docusate 8.6-50 mg Tablet PO SCH ×2 (08:30→20:30)
[2016-06-27 09:30] VITALS: BP 175/80; PULSE 66; RESP 18; O2SAT 97
--- NOTE | 2016-06-27 10:02 | DRSVH ---
PROCEDURE: X-RAY ABDOMEN WITH ERECT AND/OR DECUBITUS VIEWS ([id number]) INDICATIONS: PARTIAL SMALL BOWEL OBSTUCTION VS ILEUS TECHNIQUE: 2 views of the abdomen were acquired. COMPARISON: [facility], CR, XR ABD W ERECT + OR DECUB 2 VW, 06/26/2016, 8:58. FINDINGS: Surgical changes and devices: Is a gastric tube present tip projects over the gastric antrum. Bowel: Mild gaseous distention of both small and large bowel otherwise bowel gas pattern is normal. Soft tissues: No masses; visualized solid organ contours appear normal in size. No suspicious abdom inal calcifications. Bones: No suspicious bony abnormalities. IMPRESSION: Resolving small bowel obstruction. Dictated by: Prince BROWNE Interpreted: Elsie May MD on 06/27/2016 at 10:02 Transcribed by: JANICE on 06/27/2016 at 10:02 Approved by: Elsie May M.D. on 06/27/2016 at 16:36
[2016-06-27] MEDS: Famotidine Inj 20 MG in IV Premix 1 EACH IV SCH ×2 (11:04→19:41)
--- NOTE | 2016-06-27 11:11 | PCM.PNMED ---
Subjective Date of Service Jun 27, 2016 Subjective pt stated that she had horrible night with multiple v, dry heaves, NG was clamped by surgery, not much output noted. pt still in severe pain on back, epigastric area. Exam Vital Signs Vital Sign - Last Date Time Temp Pulse Resp B/P Pulse Ox O2 Delivery O2 Flow Rate FiO2 06/27/16 09:30 36.5 66 18 175/80 97 Room Air Intake and Output 06/26/16 06/26/16 06/27/16 Cumulative From/Thru 15:00 23:00 07:00 06/25/16 08:46 - 06/27/16 05:49 Intake Total 1309 ml 1005 ml 4055 ml Output Total 980 ml 750 ml 3780 ml Balance 329 ml 255 ml 275 ml Intake Oral 0 ml 0 ml 250 ml IV Total 1309 ml 1005 ml 3805 ml Output Urine Total 900 ml 750 ml 3300 ml Gastric Drainage Total 80 ml 480 ml # Bowel Movements 0 0 Exam NAD, comfortably laying down on the bed no JVD, MMM, no LAD RRR, nl s1, s2 no mrg CTAB, no w,c S,ND,epigastric tenderness/RUQ, normoactive BS+, no CVAT warm, no edema, pulses 2/2 MSK: ttp on bilateral mid throracic paraspinal area, no ttp on spines. IVs and Medications Medications Reviewed: Medications were reviewed in detail Lab and Diagnostics Result Diagram: 06/27/16 0610 06/27/16 0610 X-Rays, CTs and MRIs Caution: Report not yet finalized and possibly incomplete! PROCEDURE: X-RAY ABDOMEN WITH ERECT AND/OR DECUBITUS VIEWS ([id number]) INDICATIONS: PARTIAL SMALL BOWEL OBSTUCTION VS ILEUS TECHNIQUE: 2 views of the abdomen were acquired. COMPARISON: [facility], CR, XR ABD W ERECT + OR DECUB 2 VW, 2016, 8:58. FINDINGS: Surgical changes and devices: Is a gastric tube present tip projects over the gastric antrum. Bowel: Mild gaseous distention of both small and large bowel otherwise bowel gas pattern is normal. Soft tissues: No masses; visualized solid organ contours appear normal in size. No suspicious abdominal calcifications. Bones: No suspicious bony abnormalities. IMPRESSION: Resolving small bowel obstruction. Dictated by: Prince Choffel RRA Interpreted: Elsie May MD on 06/27/2016 at 10: 02 Transcribed by: JANICE on 06/27/2016 at 10:02 Assessment & Plan A 70 yo F w/ prior abdominal/pelvic surgery, HTN, EDDY, peripheral vascular disease, osteoarthritis, and chronic opioid use for hip pain p/w progressively worsened back pain, abdominal pain. Acute, active abdominal pain, nausea, back pain, POA, likely due to partial SBO in the multiple abdominal surg, functional impairment with chronic opioid, unlikely other etiologies given UA, abd US unremarkable today, no obvious signs for surgery, lactate WNL. back pain seemed more chronic in nature, PE ruled out 5days ago, will see which w/u has been done in the past. repeat AXR 06/26 showed persistent SBO. 06/27 showed resolving SBO -pt clinically not grossly changed, -appreciate surgery input -NGT with low intermittent suction, I&O -NPO now, -serial abdominal exam, -continue bowel regimen -pain control with home opioid, dilaudid prn Chronic, stable HTN, diet controlled, hydralazine prn for SBP>180s, will consider oral agent if persistent chronic opioid use for hip pain, continue home dose PVD, not active dispo:likely 2-3more days given slow progress diet:defer to surgery dvt ppx:LMWH Full code VTE Prophylaxis: Sub-Q Enoxaparin VTE Mechanical Devices: Intermittant Pneumatic CD Resuscitation Status: CPR: Attempt Resuscitation Time spent 35min Jorge Melara MD Jun 27, 2016 11:08
[2016-06-27 13:52] VITALS: BP 164/77; PULSE 69; RESP 18; O2SAT 96
--- NOTE | 2016-06-27 18:23 | NUR ---
GI Continues to c/o abd pain, some nausea. NGT put out 300cc dark green bile, after she drank 100cc of oral contrast. Passing a little flatus
[2016-06-27 20:22] VITALS: BP 152/70; PULSE 69; RESP 20; O2SAT 92
[2016-06-28] VITALS (8 sets, daily range): BP systolic 143–190; BP diastolic 67–92; PULSE 58–82; RESP 15–18; O2SAT 90–98
[2016-06-28] MEDS: HYDROmorphone 1 mg/mL Inj IVPUSH PRN ×6 (00:36→22:17)
--- NOTE | 2016-06-28 04:47 | NUR ---
GI/Behavior Pt continues to have extreme abdominal pain, receiving prn dilaudid as ordered. Pt had nausea this shift, received prn zofran with + effects. Pt had episode of waking up and becoming very combative regarding her not receiving answers as to what was going on with her care, she believed no MD has spoken with her. She was determined to walk to xray to get answers and to find a doctor. She could not remember having an abdominal xray in the am, despite reading results to her. Also advised she had another ordered for this morning, she was aware of that. Pt phoned her to pick her up and he said no, she calmed after that. Charge nurse notified and verified information to Pt. MD was paged and he spoke to Pt. Afterwards Pt became aware of her behaviors and confusion and apologized to SKI GUIDE, Nurse and charge nurse. Behavior appeared to be due to pain, received prn dilaudid and was able to rest.
[2016-06-28 07:30] LABS: BASOPHILS % (AUTO) 0.6 % (0-3); EOSINOPHILS % (AUTO) 2.2 % (0-5); MONOCYTES % (AUTO) 8.4 % (4-12); Mean Corpuscular Hemoglobin 29.1 pg (27.0-35.0); Mean Corpuscular Volume 89.1 fL (81-100); NEUTROPHILS % (AUTO) 74.8 % (40-74); Platelet Count 392 bil/L (150-400)
--- NOTE | 2016-06-28 07:47 | PCM.PNSURG ---
Subjective Date of Service: Jun 28, 2016 Visit Information: Reason for Visit: Possible partial SBO Date of Admission: Jun 25, 2016 at 12:57 Hospital Day #4 Subjective: Patient reports diarrhea following the Gastrografin yesterday with moderate improvement in her abdominal pain. She reports persistent RUQ/right flank pain as well as nausea. No vomiting. She endorses pain between her shoulder blades that worsens with movement. Of note she has chronic pain secondary to osteoarthritis, on chronic opiate therapy. Postop General: No Shortness of Breath Gastrointestinal: Passing Flatus, Diarrhea, Complains of Nausea Pain Management: IV Push Postop Activity: Ambulating Independently, Ambulating in Room Only Objective Vital Sign- Last 8 Hours Date Time Temp Pulse Resp B/P Pulse Ox O2 Delivery O2 Flow Rate FiO2 06/28/16 05:10 36.6 68 18 163/73 97 Room Air 06/28/16 00:31 36.5 67 18 190/87 97 Room Air Intake and Output- Last 8 Hour 06/28/16 Cumulative From/Thru 07:00 06/25/16 08:46 - 06/28/16 06:10 Intake Total 1303 ml 7673 ml Output Total 850 ml 4930 ml Balance 453 ml 2743 ml Intake Oral 0 ml 350 ml IV Total 1303 ml 7323 ml Output Urine Total 800 ml 4100 ml Gastric Drainage Total 50 ml 830 ml # Voids 3 # Bowel Movements 1 1 General: Alert, Oriented X3 Abdomen: Soft (diffusely tender to palpation, loc RUQ), Non-distended, No masses Extremities: Thigh&Calf Soft/Nontender Result Diagram: 06/27/16 0610 06/27/16 0610 Lab & Micro Results: Laboratory Tests Test 06/28/16 06:45 White Blood Count 11.2th/mm3 (3.8-10.1) Red Blood Count 4.33mil/mm3 (3.90-5.20) Hemoglobin 12.6g/dL (12.0-15.6) Hematocrit 38.6% (35.0-46.0) Mean Corpuscular Volume 89.1fL (81-100) Mean Corpuscular Hemoglobin 29.1pg (27.0-35.0) Mean Corpuscular Hemoglobin Concent 32.6% (32.0-37.0) Red Cell Distribution Width 14.0% (12.3-15.4) Platelet Count 392bil/L (150-400) Neutrophils (%) (Auto) 74.8% (40-74) Lymphocytes (%) (Auto) 13.7% (14-46) Monocytes (%) (Auto) 8.4% (4-12) Eosinophils (%) (Auto) 2.2% (0-5) Basophils (%) (Auto) 0.6% (0-3) Diagnostics: X-RAY ABDOMEN WITH ERECT AND/OR DECUBITUS VIEWS (06/26/16) FINDINGS: -Surgical changes and devices: Multiple surgical clips and surgical sutures noted in the pelvis and right lower quadrant of abdomen. Patient status post ORIF of left femur fracture. -Chest: Lungs are clear. Heart size is normal. No pleural effusions. No pneumoperitoneum. -Abdomen: Mildly dilated loops of small bowel noted. Scattered air-fluid levels are noted. No suspicious calcifications. Visualized solid organ contours appear normal. -Bones: No suspicious bony lesions. IMPRESSION: Persistent partial small bowel obstructive pattern no significant change from prior examination. Dictated by: Prince Rivera RRLis Interpreted: Marleny Gant MD on 06/26/2016 at 10: 51 Transcribed by: SIVA on 06/26/2016 at 10:52 Assessment & Plan Impression 70yo female w/ a hx of chronic opioid use for low back/left hip pain, recent UTI tx w/Bactrim and prior abdominal surgeries including: hysterectomy, exploratory laparotomy and appendectomy who presented to the ED c/o RUQ pain, N/ V and subsequently admitted for possible partial SBO after abdominal plain film showed mildly dilated loops of small bowel. RUQ and right flank pain likely multifactorial and secondary to opioid induced ileus and recent antibiotic use for UTI. Pt continues to report significant RUQ/ right flank pain despite episode of diarrhea following gastrografin challenge late yesterday afternoon. Pain control continues to be an issue due to patient' s history of chronic opioid use with habituation. Suspect nausea aggravated by IV Dilaudid. Suspect pain will continue to improve as pSBO/ileus is resolving, Repeat abd films, pending. Problems: Plan - Repeat abd films 06/26/16 showing persistent pSBO, no significant change from prior examination. NGT unclamped, put back to suction. - Abd xray the following day showed signs of resolving SBO. Gastrografin challenge on 06/27/16. - Today repeat abd xray shows Gastrografin throughout the colon, no SBO - Discontinue NGT - Start clear liquid diet, will advance as tolerated. - Encourage ambulation. - CT abd ordered to further asses pt's persistent RUQ/right flank pain, despite diarrhea following Gastrografin challenge. VTE Prophylaxis: Sub-Q Enoxaparin Resuscitation Status: CPR: Attempt Resuscitation Attending Statement: I agree with Dr. Ortiz's assessment and plan. No SBO based on gastrograffin challenge test. Shira Ortiz DO Jun 28, 2016 07:34 Efren Watson MD Jul 11, 2016 11:00
[2016-06-28 08:01] LABS: Magnesium 1.6 mg/dL (1.6-2.6); Phosphorus 3.6 mg/dL (2.5-4.9)
[2016-06-28] MEDS: Senna-Docusate 8.6-50 mg Tablet PO SCH ×2 (08:30→20:30)
[2016-06-28] MEDS: Polyethylene Glycol (PEG) 17 Gm Powder PO SCH (08:30)
--- NOTE | 2016-06-28 08:43 | NUR ---
NUTRITION ASSESSMENT: ASSESS: 70YO F with slowly resolving small bowel obstruction, remains NPO. S/P gastrografin with some improvement in abdominal pain noted. PMHX: Hysterectomy, UTI's,laparotomy, ETOH, PVD DIET: NPO (x3d) LABS: Alb 3.8, BUN 6, Na 130 MEDS: Reviewed GI: 1 BM 06/28. NG tube clamped with minimal output per surgeon SKIN: Rick 2 WEIGHT: 64.3kg, BMI 23.6 EST.NEEDS: 25-30kcal/kg;1.0-1.2g/kg pro Kcal: 2390-9197 Pro: 65-80 NUTRITION DIAGNOSIS: (1) Inadequate oral intake related to altered GI tract function as evidenced by NPO x 3 days status. INTERVENTION: (1) In event diet unable to be advanced beyond NPO/Clear liquid next 2-3 days recommend consideration nutrition support. MONITOR/EVALUATE: Monitor for diet advancement, GI status, labs. F/U per high risk.
[2016-06-28] MEDS: Famotidine Inj 20 MG in IV Premix 1 EACH IV SCH ×2 (09:22→20:30)
--- NOTE | 2016-06-28 10:46 | NUR ---
NG Tube/Diet DC'd NG tube per MD order. Diet advanced to clear liquids, patient seems to be tolerating. No c/o nausea/abdominal discomfort.
[2016-06-28] MEDS: D5 0.45% NaCl + KCl 20 mEq/L 1,000 ML IV SCH ×2 (13:47→23:12)
--- NOTE | 2016-06-28 14:31 | DRSVH ---
PROCEDURE: X-RAY ABDOMEN WITH ERECT AND/OR DECUBITUS VIEWS ([id number]) INDICATIONS: f/u SMALL BOWEL OBSTRUCTION, NG tube TECHNIQUE: 2 views of the abdomen were acquired. COMPARISON: [facility], CR, XR ABD W ERECT + OR DECUB 2 VW, 06/27/2016, 7:58. FINDINGS: Surgical changes and devices: Nasogastric tube are demonstrated to project over the gastric antrum. Bowel: There is gaseous distention of multiple small bowel loops within the central abdomen short air -fluid levels are present. Residual contrast media noted throughout the bowel including the colon. No pneumatosis or bowel wall thickening. No pneumoperitoneum. Soft tissues: No masses; visualized solid organ contours appear normal in size. No suspicious abdom inal calcifications. Bones: No suspicious bony abnormalities. IMPRESSION: Headache suggesting early complete or partial small bowel obstruction. Dictated by: Prince Rivera [facility] Interpreted: Maria C Mullins MD on 06/28/2016 at 14:30 Transcribed by: STEW on 06/28/2016 at 14:31 Approved by: Maria C Mullins MD, PhD on 06/28/2016 at 17:05
--- NOTE | 2016-06-28 15:05 | NUR ---
Social Work- Readiness for Discharge Data: Pt is on day 3 of hospitalization for SBO per H&P. Pt is not medically stable, anticipate 1-2 more days. Per Mikey's note, pt NG tube has been discontinued. Pt ambulating in room. Pt to discharge home with to transport via POV. No anticipated discharge needs. SW will continue to follow. Assessment: [place] Plan: Pt to discharge home with to transport via POV. No anticipated discharge needs.SW will continue to follow. MIRI Watkins
--- NOTE | 2016-06-28 15:23 | PCM.PNMED ---
Subjective Date of Service Jun 28, 2016 Subjective pt was in severe pain in AM, but symptoms were improved throughout the day. Exam Vital Signs Vital Sign - Last Date Time Temp Pulse Resp B/P Pulse Ox O2 Delivery O2 Flow Rate FiO2 06/28/16 13:21 36.4 65 16 148/82 96 Room Air Intake and Output 06/27/16 06/27/16 06/28/16 Cumulative From/Thru 15:00 23:00 07:00 06/25/16 08:46 - 06/28/16 06:10 Intake Total 1315 ml 1303 ml 7673 ml Output Total 300 ml 850 ml 4930 ml Balance 1015 ml 453 ml 2743 ml Intake Oral 100 ml 0 ml 350 ml IV Total 1215 ml 1303 ml 7323 ml Output Urine Total 800 ml 4100 ml Gastric Drainage Total 300 ml 50 ml 830 ml # Voids 3 3 # Bowel Movements 1 1 Exam NAD, comfortably laying down on the bed no JVD, MMM, no LAD RRR, nl s1, s2 no mrg CTAB, no w,c S,ND,epigastric tenderness/RUQ, normoactive BS+, no CVAT warm, no edema, pulses 2/2 MSK: ttp on bilateral mid throracic paraspinal area, no ttp on spines. IVs and Medications Medications Reviewed: Medications were reviewed in detail Lab and Diagnostics Result Diagram: 06/28/1664406/28/16644 X-Rays, CTs and MRIs Caution: Report not yet finalized and possibly incomplete! PROCEDURE: X-RAY ABDOMEN WITH ERECT AND/OR DECUBITUS VIEWS ([id number]) INDICATIONS: PARTIAL SMALL BOWEL OBSTUCTION VS ILEUS TECHNIQUE: 2 views of the abdomen were acquired. COMPARISON: [facility], CR, XR ABD W ERECT + OR DECUB 2 VW, 2016, 8:58. FINDINGS: Surgical changes and devices: Is a gastric tube present tip projects over the gastric antrum. Bowel: Mild gaseous distention of both small and large bowel otherwise bowel gas pattern is normal. Soft tissues: No masses; visualized solid organ contours appear normal in size. No suspicious abdominal calcifications. Bones: No suspicious bony abnormalities. IMPRESSION: Resolving small bowel obstruction. Dictated by: Prince BROWNE Interpreted: Elsie May MD on 06/27/2016 at 10: 02 Transcribed by: JANICE on 06/27/2016 at 10:02 Assessment & Plan A 70 yo F w/ prior abdominal/pelvic surgery, HTN, EDDY, peripheral vascular disease, osteoarthritis, and chronic opioid use for hip pain p/w progressively worsened back pain, abdominal pain. Acute, active abdominal pain, nausea, back pain, POA, likely due to partial SBO in the multiple abdominal surg, functional impairment with chronic opioid, unlikely other etiologies given UA, abd US unremarkable today, no obvious signs for surgery, lactate WNL. back pain seemed more chronic in nature, PE ruled out 5days ago, will see which w/u has been done in the past. repeat AXR 06/26 showed persistent SBO. 06/27 showed resolving SBO. 06/28 showed passing contrast to colon. -pt clinically improving, surgery signed off. NGT was discontinued. -serial abdominal exam, -continue bowel regimen -pain control with home opioid, dilaudid prn Chronic, stable HTN, diet controlled, hydralazine prn for SBP>180s, will consider oral agent if persistent chronic opioid use for hip pain, continue home dose PVD, not active dispo:likely tomorrow diet:liquid, slowly advance diet dvt ppx:LMWH Full code VTE Prophylaxis: Sub-Q Enoxaparin VTE Mechanical Devices: Intermittant Pneumatic CD Resuscitation Status: CPR: Attempt Resuscitation Time spent 35min Jorge Melara MD Jun 28, 2016 15:23
--- NOTE | 2016-06-28 17:04 | NUR ---
Pain Patient c/o 10/10 back/side pain. 2-4 mg IV dialudid ordered. 3mg IV dilaudid given with good effect. Patient states this dose is effective for her.
[2016-06-29 00:11] VITALS: BP 167/87; PULSE 68; RESP 20; O2SAT 97
[2016-06-29] MEDS: HYDROmorphone 1 mg/mL Inj IVPUSH PRN (02:51)
--- NOTE | 2016-06-29 03:15 | NUR ---
Pain 3 mg IV Dilaudid given for pain as needed. 10mg Oxycodone PO also given earlier in shift. Pt. is now sleeping. Will continue to monitor.
[2016-06-29 04:05] VITALS: BP 155/73; PULSE 66; RESP 18; O2SAT 96
[2016-06-29 07:24] LABS: BASOPHILS % (AUTO) 0.7 % (0-3); EOSINOPHILS % (AUTO) 3.7 % (0-5); MONOCYTES % (AUTO) 12.2 % (4-12); Mean Corpuscular Hemoglobin 29.3 pg (27.0-35.0); Mean Corpuscular Volume 89.1 fL (81-100); NEUTROPHILS % (AUTO) 62.8 % (40-74); Platelet Count 369 bil/L (150-400)
[2016-06-29 07:40] LABS: Magnesium 1.7 mg/dL (1.6-2.6); Phosphorus 3.5 mg/dL (2.5-4.9)
--- NOTE | 2016-06-29 08:27 | PCM.PNSURG ---
Subjective Date of Service: Jun 29, 2016 Visit Information: Reason for Visit: Possible partial SBO Date of Admission: Jun 25, 2016 at 12:57 Hospital Day #5 Subjective: Patient is doing well this morning. Continues to have bowel movements and is tolerating a full diet. She reports ongoing back and right flank pain which is chronic, appears at baseline and tolerable. She is ambulating independently and her is in the room this morning getting ready for discharge. She states that she is planning on follow up for her back pain at her previous pain clinic for consideration of repeat injections. Postop General: No Shortness of Breath, No Chest Pain Gastrointestinal: Tolerating Oral Feedings, No N/V, Passing Stool Pain Management: PO Postop Activity: Ambulating Independently Objective Vital Sign- Last 8 Hours Date Time Temp Pulse Resp B/P Pulse Ox O2 Delivery O2 Flow Rate FiO2 06/29/16 04:05 36.6 66 18 155/73 96 Room Air Intake and Output- Last 8 Hour 06/29/16 Cumulative From/Thru 07:00 06/25/16 08:46 - 06/29/16 06:58 Intake Total 1460 ml 12051 ml Output Total 5430 ml Balance 1460 ml 5055 ml Intake Oral 200 ml 650 ml IV Total 1260 ml 9835 ml Output Urine Total 4600 ml Gastric Drainage Total 830 ml # Voids 2 8 # Bowel Movements 0 1 General: Alert, Oriented X3 Abdomen: Soft, Non-distended, Normoactive bowel tones Extremities: Thigh&Calf Soft/Nontender Neuro: Grossly Neurologically Intact Result Diagram: 06/29/16 0651 06/29/16 0651 Lab & Micro Results: Laboratory Tests Test 06/29/16 06:51 White Blood Count 9.4th/mm3 (3.8-10.1) Red Blood Count 4.23mil/mm3 (3.90-5.20) Hemoglobin 12.4g/dL (12.0-15.6) Hematocrit 37.7% (35.0-46.0) Mean Corpuscular Volume 89.1fL (81-100) Mean Corpuscular Hemoglobin 29.3pg (27.0-35.0) Mean Corpuscular Hemoglobin Concent 32.9% (32.0-37.0) Red Cell Distribution Width 14.1% (12.3-15.4) Platelet Count 369bil/L (150-400) Neutrophils (%) (Auto) 62.8% (40-74) Lymphocytes (%) (Auto) 20.3% (14-46) Monocytes (%) (Auto) 12.2% (4-12) Eosinophils (%) (Auto) 3.7% (0-5) Basophils (%) (Auto) 0.7% (0-3) Sodium Level 130mEq/L (134-144) Potassium Level 4.3mEq/L (3.5-5.2) Chloride Level 94mEq/L (97-108) Carbon Dioxide Level 24mmol/L (18-29) Blood Urea Nitrogen 6mg/dL (8-27) Creatinine 0.51mg/dL (0.57-1.00) Estimat Glomerular Filtration Rate 171mL/min (>59) Glucose Level 109mg/dL (60-99) Calcium Level 9.0mg/dL (8.5-10.1) Phosphorus Level 3.5mg/dL (2.5-4.9) Magnesium Level 1.7mg/dL (1.6-2.6) Total Bilirubin 0.4mg/dL (0.0-1.2) Aspartate Amino Transf (AST/SGOT) 12U/L (0-50) Alanine Aminotransferase (ALT/SGPT) 7U/L (0-32) Alkaline Phosphatase 87U/L (25-165) Total Protein 6.0g/dL (6.4-8.4) Albumin 3.8g/dL (3.4-5.0) Diagnostics: X-RAY ABDOMEN WITH ERECT AND/OR DECUBITUS VIEWS (06/26/16) FINDINGS: -Surgical changes and devices: Multiple surgical clips and surgical sutures noted in the pelvis and right lower quadrant of abdomen. Patient status post ORIF of left femur fracture. -Chest: Lungs are clear. Heart size is normal. No pleural effusions. No pneumoperitoneum. -Abdomen: Mildly dilated loops of small bowel noted. Scattered air-fluid levels are noted. No suspicious calcifications. Visualized solid organ contours appear normal. -Bones: No suspicious bony lesions. IMPRESSION: Persistent partial small bowel obstructive pattern no significant change from prior examination. Dictated by: Prince BROWNE Interpreted: Marleny Gant MD on 06/26/2016 at 10: 51 Transcribed by: SIVA on 06/26/2016 at 10:52 X-RAY ABDOMEN WITH ERECT AND/OR DECUBITUS VIEWS (06/27/16) FINDINGS: -Surgical changes and devices: Is a gastric tube present tip projects over the gastric antrum. -Bowel: Mild gaseous distention of both small and large bowel otherwise bowel gas pattern is normal. -Soft tissues: No masses; visualized solid organ contours appear normal in size. No suspicious abdominal calcifications. -Bones: No suspicious bony abnormalities. IMPRESSION: Resolving small bowel obstruction. Dictated by: Prince BROWNE Interpreted: Elsie May MD on 06/27/2016 at 10: 02 Transcribed by: JANICE on 06/27/2016 at 10:02 Approved by: Elsie May M.D. on 06/27/2016 at 16:36 X-RAY ABDOMEN WITH ERECT AND/OR DECUBITUS VIEWS (06/28/16) FINDINGS: -Surgical changes and devices: Nasogastric tube are demonstrated to project over the gastric antrum. -Bowel: There is gaseous distention of multiple small bowel loops within the central abdomen short air-fluid levels are present. Residual contrast media noted throughout the bowel including the colon. No pneumatosis or bowel wall thickening. No pneumoperitoneum. -Soft tissues: No masses; visualized solid organ contours appear normal in size. No suspicious abdominal calcifications. -Bones: No suspicious bony abnormalities. IMPRESSION: Headache suggesting early complete or partial small bowel obstruction. Dictated by: Prince BROWNE Interpreted: Maria C Mullins MD on 06/28/2016 at 14:30 Transcribed by: STEW on 06/28/2016 at 14:31 Approved by: Maria C Mullins MD, PhD on 06/28/2016 at 17:05 Assessment & Plan Impression 70yo female w/ a hx of chronic opioid use for low back/left hip pain, recent UTI tx w/Bactrim and prior abdominal surgeries including: hysterectomy, exploratory laparotomy and appendectomy who presented to the ED c/o RUQ pain, N/ V and subsequently admitted for possible partial SBO after abdominal plain film showed mildly dilated loops of small bowel. RUQ and right flank pain likely multifactorial and secondary to opioid induced ileus, partial SBO (now resolved), and chronic back pain. Pt continues to report right flank and thoracic pain. Pain tolerable and well controlled this morning on patient's home dosing of oxycodone. Pain control has been an issue due to patient's history of chronic opioid use with habituation. Suspect majority of patient's right-sided pain is chronic and unlikely related to SBO, which has resolved. No surgical intervention required at this time. Problems: Plan - s/p Gastrografin challenge on 06/27/16 w/ signs of resolving SBO on imaging. - Clinically appears SBO resolved & ongoing right-sided pain due to chronic back pain - Pt is tolerating a general diet, no surgical intervention necessary. - Recommend close f/u with PCP and possibly neurosurgery for chronic low back pain. - Suspect pt would benefit from a referral to a pain clinic. VTE Prophylaxis: Sub-Q Enoxaparin Resuscitation Status: CPR: Attempt Resuscitation Attending Statement: I examined the pt and I agree with Dr. Ortiz's assessment and plan. Shira Ortiz DO Jun 29, 2016 08:27 Efren Watson MD Jul 11, 2016 11:03
[2016-06-29] MEDS ORDERED: OXYC-474 PO (08:36)
[2016-06-29] MEDS ORDERED: Acetaminophen PO (08:36)
--- NOTE | 2016-06-29 09:05 | PCM.DIMED ---
Discharge Instructions Date of Service Jun 29, 2016 Dates of Hospitalization Jun 25, 2016 at 12:57 Discharge Diagnosis Discharge Diagnosis Small bowel obstruction Chronic back pain Medication Instructions You can take oxycodone as you have been taking at home Please take it with laxatives so that you don't develop constipation. Diet Other (Liquid diet, slowly advance) Activity No restrictions Call your provider Other Patient Instructions You were hospitalized with intractable abdominal pain, back pain. Your found to have blockage in no small bowels, required decompression with nasogastric tube. Her symptoms were greatly improved with supportive therapy, did not require surgery. Please note that he can continue to take your narcotics for your chronic pain, father discussion with Pain doctor to optimize your pain medicine, possible nerve block procedure. Follow-up plan Please follow-up with your primary doctor in 2 weeks Follow-up Provider: Chris Milian MD Follow-up with PCP in: 2 weeks Jorge Melara MD Jun 29, 2016 09:05
--- NOTE | 2016-06-29 09:08 | NUR ---
Social Work- Discharge Data: Pt is on day 4 of hospitalization for SBO per H&P. Pt is medically stable for discharge today. Per Surgery's note, pt NG tube has been discontinued. Pt ambulating in room. Pt to discharge home with to transport via POV. No discharge needs. Assessment: Pt who is independent at base. Plan: Pt to discharge home with to transport via POV. No discharge needs. Iwona Campbell MSW
--- NOTE | 2016-06-29 09:30 | NUR ---
discharged home with , will have f/u appt with PCP in 2 weeks, no new Rx except for Tylenol. Pt is eating/drinking, ambulating, denies nausea, continue to c/o chronic back pain, Oxycodone given
--- NOTE | 2016-06-29 10:27 | PROG NOTE ---
[address] [address] PROGRESS NOTE PATIENT: DUANE CAAL : 1945 MR#: [id number] ADMIT: 06/25/2016 JOB ID: [id number] DATE: 06/29/2016 SUBJECTIVE: The patient is seen in followup. She was followed by the Surgical service for possible bowel obstruction. That has resolved. She is passing gas, had a bowel movement. She denies nausea and vomiting. Her right upper quadrant and right flank pain persists. IMPRESSION: Small bowel obstruction, resolved. PLAN: Surgery will no longer actively follow her.
--- NOTE | 2016-06-29 12:40 | PCM.DC.MED ---
Discharge Summary Date of Service Jun 29, 2016 Dates of Hospitalization Date of Hospital Admission Jun 25, 2016 at 12:57 Date of Discharge: Jun 29, 2016 Providers: Admitting Physician: Jorge Gupta MD Primary Care Physician: Chris Milian MD Attending Physician: Jorge Gupta MD Diagnosis at Time of Discharge Diagnosis at Time of Discharge Acute problems Small bowel obstruction Chronic opioid use for hip pain,back pain Chronic problems HTN, diet controlled, PVD, Consultations General surgery Procedures XRay, CTs & MRIs PROCEDURE: US ABDOMEN, LIMITED ([id number]) INDICATIONS: rug pain TECHNIQUE: Real-time focused scanning was performed of the abdomen, with image documentation. COMPARISON: [facility], CT, CT ABD PELVIS W CON, 06/20/2016, 19:22. FINDINGS: Limited assessment demonstrates normal appearance of the gallbladder. No biliary dilatation. IMPRESSION: Normal ultrasound appearance of gallbladder. A cause for right upper quadrant pain is not identified on ultrasound. Dictated by: Prince BROWNE Interpreted: Elizabeth Garza MD on 06/25/2016 at 12:08 Transcribed by: SONY on 06/25/2016 at 12:09 Approved by: Elizabeth Garza M.D. on 06/25/2016 at 16:07 PROCEDURE: X-RAY ABDOMEN WITH ERECT AND/OR DECUBITUS VIEWS ([id number]) INDICATIONS: f/u SMALL BOWEL OBSTRUCTION, NG tube TECHNIQUE: 2 views of the abdomen were acquired. COMPARISON: [facility], CR, XR ABD W ERECT + OR DECUB 2 VW, 2016, 7:58. FINDINGS: Surgical changes and devices: Nasogastric tube are demonstrated to project over the gastric antrum. Bowel: There is gaseous distention of multiple small bowel loops within the central abdomen short air-fluid levels are present. Residual contrast media noted throughout the bowel including the colon. No pneumatosis or bowel wall thickening. No pneumoperitoneum. Soft tissues: No masses; visualized solid organ contours appear normal in size. No suspicious abdominal calcifications. Bones: No suspicious bony abnormalities. IMPRESSION: Headache suggesting early complete or partial small bowel obstruction. Dictated by: Prince BROWNE Interpreted: Maria C Mullins MD on 06/28/2016 at 14:30 Transcribed by: STEW on 06/28/2016 at 14:31 Approved by: Maria C Mullins MD, PhD on 06/28/2016 at 17:05 Caution: Report not yet finalized and possibly incomplete! PROCEDURE: X-RAY ABDOMEN WITH ERECT AND/OR DECUBITUS VIEWS ([id number]) INDICATIONS: PARTIAL SMALL BOWEL OBSTUCTION VS ILEUS TECHNIQUE: 2 views of the abdomen were acquired. COMPARISON: [facility], CR, XR ABD W ERECT + OR DECUB 2 VW, 2016, 8:58. FINDINGS: Surgical changes and devices: Is a gastric tube present tip projects over the gastric antrum. Bowel: Mild gaseous distention of both small and large bowel otherwise bowel gas pattern is normal. Soft tissues: No masses; visualized solid organ contours appear normal in size. No suspicious abdominal calcifications. Bones: No suspicious bony abnormalities. IMPRESSION: Resolving small bowel obstruction. Dictated by: Prince Rivera RRA Interpreted: Elsie May MD on 06/27/2016 at 10: 02 Transcribed by: JANICE on 06/27/2016 at 10:02 Brief History History of present illness obtained on 06/25 A 70 yo F w/ prior abdominal/pelvic surgery, HTN, EDDY, peripheral vascular disease, osteoarthritis, and chronic opioid use for hip pain. patient initially presented 5days ago to ED with abdominal pain for 3wks, with nausea, vomiting, pleuritic chest pain. CT with contrast chest, abd, pelvis ruled out organic causes, UA was positive, therefore d/lisa home with bactrim 7days. Since pt left hospital, back pain and RUQ pain continued, decided to come to hospital. pain was most severe on Lt back below shoulder blade, band- like sharp, radiated to R flank, RUQ, epigastric area. Lt side of back also started hurting,pt stated that back is not new but got worse pt also had difficulty of breathing due to pain, deep inspiration caused more pain. pt also had constant diarrhea due to bactrim given in ED 6days ago, although pt continued until yesterday, pt started having dry heaves multiple times since this AM. Patient was able to eat some until yesterday. pt took usual oxycodone qid but didn't tough his pain. pt denied palpitation, fever, chills, sick contacts, travel. Of note, pt takes oxycodone regularly (10mg qid) for hip pain after a fracture in 03/2015 ROS: no fever, chills, dysuria, frequency, urgency, chest pain, palpitation, sick contacts, travel. In ED, VS [id number], 81, 18, afebrile, 97%, Compared to labs 5days ago, labs notable for trending down wbc 14 to 11.7, stable hyponatremia/renal function, lactate, lipase WNL. UA few bact but no nitrite/leukEST, UCX from 06/20 grew mixed hawa. AXR showed possibl early partial SBO, ED provider spoke to , unlikely surgical candidate, recommended medical management. NG tube was being inserted in ED. Hospital Course A 70 yo F w/ prior abdominal/pelvic surgery, HTN, EDDY, peripheral vascular disease, osteoarthritis, and chronic opioid use for hip pain p/w progressively worsened back pain, abdominal pain. Acute problems 1abdominal pain, nausea, back pain, POA, likely due to partial SBO in the setting of multiple abdominal surg in the past, functional impairment with chronic opioid, unlikely other etiologies given UA, abd US unremarkable, lactate WNL. Patient was consulted surgery, inserted NG for decompression, received serial images. Repeat AXR 06/26 showed persistent SBO. 06/27 showed resolving SBO. 06/28 gastrograffin challenge showed passing contrast to colon. Eventually SBO resolved w/o surgery, pain was controlled with home regimen, tolerated diet, deemed safe for d/c 2chronic opioid use for hip pain,back pain, back pain seemed more chronic in nature but patient is persistently symptomatic. PE ruled out 5days ago, patient was recommended to follow up with anesthesia doctor who did nerve blocks twice already, possibly pain clinic as well. Pt was resumed home Oxycodone on d/c, recommended to continue bowel regimen. Chronic, stable HTN, diet controlled, general BP trends was not in target, 140-160s, likely in the setting of chronic pain, acute illnes as above, likely needs oral agent based on home BP monitoring. PVD, not active Exam Vital Signs (Last) Date Time Temp Pulse Resp B/P Pulse Ox O2 Delivery O2 Flow Rate FiO2 06/29/16 04:05 36.6 66 18 155/73 96 Room Air Exam NAD, comfortably laying down on the bed no JVD, MMM, no LAD RRR, nl s1, s2 no mrg CTAB, no w,c S,ND,NT, normoactive BS+, no CVAT warm, no edema, pulses 2/2 MSK: ttp on bilateral mid throracic paraspinal area, no ttp on spines. Test 06/25/16 09:00 06/25/16 11:30 06/29/16 06:51 Urine Color Straw (YELLOW) Urine Appearance Hazy (CLEAR,HAZY) Urine pH 7.5 (5.0-8.0) Urine Specific [place] 1.015 (1.003-1.035) Urine Protein Tracemg/dL (NEG,TRACE) Urine Glucose (UA) Negativemg/dL (NEGATIVE) Urine Ketones Negativemg/dL (NEGATIVE) Urine Occult Blood Trace (NEGATIVE) Urine Nitrite Negative (NEGATIVE) Urine Bilirubin Negative (NEGATIVE) Urine Urobilinogen Normalmg/dL (NORMAL) Urine Leukocyte Esterase Negative (NEGATIVE) Urine RBC 0-2/hpf (0-2) Urine WBC 0-5/hpf (0-5) Urine Epithelial Cells Occasional/hpf (NONE-MOD) Urine Crystals None seen (NONE SEEN) Urine Bacteria Few/hpf (NONE-FEW) Urine Hyaline Casts None/lpf (NONE) Urine Granular Casts None seen (NONE SEEN) Urine Waxy Casts None seen (NONE SEEN) Urine Red Blood Cell Casts None seen (NONE SEEN) Urine White Blood Cell Casts None seen (NONE SEEN) Urine Mucus None seen (None Seen) Urine Trichomonas None seen (NONE SEEN) Urine Yeast None (NONE SEEN) Urinalysis Comment None Urine Culture Reflexed Not indicated Hold Urine Received (Received) Lactic Acid Level 0.9mmol/L (0.4-2.0) Amylase Level 38U/L (28-100) Lipase 20U/L (13-60) White Blood Count 9.4th/mm3 (3.8-10.1) Red Blood Count 4.23mil/mm3 (3.90-5.20) Hemoglobin 12.4g/dL (12.0-15.6) Hematocrit 37.7% (35.0-46.0) Mean Corpuscular Volume 89.1fL (81-100) Mean Corpuscular Hemoglobin 29.3pg (27.0-35.0) Mean Corpuscular Hemoglobin Concent 32.9% (32.0-37.0) Red Cell Distribution Width 14.1% (12.3-15.4) Platelet Count 369bil/L (150-400) Neutrophils (%) (Auto) 62.8% (40-74) Lymphocytes (%) (Auto) 20.3% (14-46) Monocytes (%) (Auto) 12.2% (4-12) Eosinophils (%) (Auto) 3.7% (0-5) Basophils (%) (Auto) 0.7% (0-3) Sodium Level 130mEq/L (134-144) Potassium Level 4.3mEq/L (3.5-5.2) Chloride Level 94mEq/L (97-108) Carbon Dioxide Level 24mmol/L (18-29) Blood Urea Nitrogen 6mg/dL (8-27) Creatinine 0.51mg/dL (0.57-1.00) Estimat Glomerular Filtration Rate 171mL/min (>59) Glucose Level 109mg/dL (60-99) Calcium Level 9.0mg/dL (8.5-10.1) Phosphorus Level 3.5mg/dL (2.5-4.9) Magnesium Level 1.7mg/dL (1.6-2.6) Total Bilirubin 0.4mg/dL (0.0-1.2) Aspartate Amino Transf (AST/SGOT) 12U/L (0-50) Alanine Aminotransferase (ALT/SGPT) 7U/L (0-32) Alkaline Phosphatase 87U/L (25-165) Total Protein 6.0g/dL (6.4-8.4) Albumin 3.8g/dL (3.4-5.0) Discharge Medications As needed ([Acetaminophen]) 325 MG TABLET 650 MG PO Q4H PRN PRN For Pain Prescribed by: JORGE GUPTA MD Oxycodone (Roxicodone) 5 Mg Tablet 10 MG PO QID PRN PRN For Pain Prescribed by: JORGE GUPTA MD Additional med instructions You can take oxycodone as you have been taking at home Please take it with laxatives so that you don't develop constipation. Followup Plan Disposition: home Follow-up plan Please follow-up with your primary doctor in 2 weeks Discharge Diet: Other (Liquid diet, slowly advance) Discharge Activity: No restrictions Patient Instructions You were hospitalized with intractable abdominal pain, back pain. Your found to have blockage in no small bowels, required decompression with nasogastric tube. Her symptoms were greatly improved with supportive therapy, did not require surgery. Please note that he can continue to take your narcotics for your chronic pain, father discussion with Pain doctor to optimize your pain medicine, possible nerve block procedure. Follow-up Provider: Chris Milian MD Follow-up with PCP in: 2 weeks Time spent 65min Jorge Gupta MD Jun 29, 2016 11:36
== END 2016-06-29 09:40 | disposition home or self-care (01) | DRG 389 ==
LOC: SED 08:26 → OSC 12:57 → OBSVTOIN 12:57
PROVIDERS: ADMIT Internal Medicine; ATTEND Internal Medicine
PROC: 0D9670Z Drainage of Stomach with Drainage Device, Via Natural or Artificial Opening (ICD-10-PCS; principal; 2016-06-25)
DX: K56.60 Unspecified intestinal obstruction (principal); F11.20 Opioid dependence, uncomplicated; F17.210 Nicotine dependence, cigarettes, uncomplicated; T40.2X5A Adverse effect of other opioids, initial encounter

== ENCOUNTER → 2016-12-11 | Day surgery (SDC) | payer MEDICARE ==
[~2016-12-11] VITALS: Ht 165.1 cm; Wt 68.0 kg
[~2016-12-11] MED LIST changes: +Acetaminophen PO; +EPIN0.3P2 IJ; +GABA-502 PO; +LIDO5CRE17 TOPICAL; -LOV40 SUBQ; +MAGN30TA3 PO; -NICO1PAT5 TOPICAL; +OMEP20CA11 PO; +OXYC-474 PO; -OXYC5TAB72 PO; -POLY17PO6 PO; -PREN1TAB25 PO; +Propofol 10,000 mCg/mL 20 mL Inj ONE; -SENN-133 PO
[2016-12-11 08:04] VITALS: BP 141/90; PULSE 70; RESP 16; O2SAT 96
--- NOTE | 2016-12-11 08:17 | PCM.HPANE ---
Patient Data Surgeon Admitting Provider: Attending Provider:Timothy Funez MD Primary Care Physician:Chris Milian MD Other Provider:Elina Avilaingham Anesthesia Reason for Visit Generalized Abdominal Pain Ht/WT & BMI Height (Feet): 5 Height (Inches): 5 Weight (Kilograms): 68.04 Body Mass Index 24.00 Allergies Coded Allergies: No Known Allergies (Unverified , 06/25/16) Past Anesthesia History Anesthesia History: Positive for:: Anesthesia Reactions (WOKE UP DURING APPY WITH ALCOHOLIC DAYS ), Denies:: Abnormal Airway, Difficult Intubation, Fam Anesthesia Reaction, Fam Malignant Hypertherm, Malignant Hyperthermia Diabetes History Hx Diabetes?: No MRSA MRSA: No Medications Active Scripts Oxycodone (Roxicodone)5 Mg Hopyln02 Mg PO QID PRN For Pain #14 TABLET Ref 0 Prov:Jogre Melara MD 06/29/16 Reported Medications Magnesium 30 Mg [id number] Mg PO DAILY 12/07/16 Lidocaine Cream 5 Gm Cream..g.1 Applic TOPICAL BID 12/07/16 Gabapentin 300 Mg [id number] Mg PO TID Ref 0 12/07/16 Epinephrine (Epipen 2-Homero)0.3 Mg/0.3 Ml Auto.injct0.3 Mg IJ DIRECTED PRN For Anaphyllaxis 12/07/16 Discontinued Reported Medications Omeprazole 20 Mg Capsule.dr20 Mg PO DAILY Ref 0 12/07/16 Discontinued Scripts [Acetaminophen] (Tylenol)325 MG TABLET No Conflict [id number] Mg PO Q4H PRN For Pain #30 Prov:Jorge Melara MD 06/29/16 History History of ENT Problems?: Yes HEENT History: Positive for:: Cataracts Denies:: Abnormal Airway Difficult Intubation Dysphagia Hearing Problem Sinus Problem Denture Type: None Teeth Condition: Within Normal Limits Hx of Heart Problems?: No Cardiovascular History: Positive for:: Hypertension Denies:: Cardiac Surgery Chest Pain Congestive Heart Failure Edema Heart Murmur Irregular Heartbeat Pacemaker Thrombophlebitis Hx of Respiratory Problem?: Yes Respiratory History: Positive for:: Pneumonia Denies:: Asthma COPD Chest Surgery Dyspnea Emphysema Hemoptysis Tuberculosis Other History/Comment ROS negative Hx Neurologic Problems?: No Neurological History: Denies:: Alzheimer's Disease CVA Dementia Dizziness Parkinson's Disease Seizures Hx of GI Problems?: Yes Other History/Comment Evaluation for abp pain. Hx of Problems?: Yes Genitourinary History: Positive for:: Urinary Tract Infection (Had surgery to correct "Opened the urethra") Denies:: HX of Hemodialysis Kidney Stones HX of Peritoneal Dialysis: No Female Hx: Positive for:: Problems with Breasts? (Lumpectomy was benign) Denies:: Currently Endometriosis Pelvic Inflammatory Hx Musculoskeletal Problems?: Yes Musculoskeletal History: Denies:: Back Injury Fibromyalgia Joint Replacement Musculoskeletal Trauma Hx of Psycho/Social Problems?: No Psycho Social History: Denies:: Anxiety Hx Depression Hx Surgeries?: Yes (TUBAL X2, HYSTERECTOMY, APPY, 2 KNEE, 1 ARM) Hx Any Other Health Problems?: Yes Other History: Denies:: Cancer Hospitalization Thyroid Disease History Blood Transfusions: Denies:: Blood Transfuse Reaction Blood Transfusions Hx Diabetes: No Hx Alcohol Use: No (HX OF ALCOHOL ABUSE)Hx Substance Use: No Smoking Status: Current Every Day Smoker Have You Smoked inLast 12 mo: Yes Stop/Bang Treated for Sleep Apnea?: No Do You Have a CPAP Machine?: No S-Snoring: Do You Snore Loudly: No T-Tired: feel tired, fatigued: No O-Obsered: Observed not breath: No P-Blood Pressure: treated: No B- Body Mass Index > 35 kg/m2: No A- Age over 50: Yes N- Neck Large Circumference: No G- Gender Male: No DRE Total Score: 1 Risk Assessment Category Category 1A: Patient has history of documented sleep apnea, and HAS NOT received any narcotic, sedative or anesthesia administration during this stay. Category 1B: Patient has history of documented sleep apnea, and HAS received any narcotic , sedative or anesthesia administration during this stay Category 2: Patient has SUSPECTED Obstructive Sleep Apnea, and HAS received any narcotic , sedative or anesthesia administration during this stay. Category 3: Patient has SUSPECTED Obstructive Sleep Apnea and HAS NOT received narcotic, sedative or anesthesia administration during this stay. Category 4: Outpatient in Procedural Areas with known sleep apnea or who screen positive for High Risk via the STOP/BANG questionnaire. Exam Exam Vital Signs Vital Signs Date Time Temp Pulse Resp B/P Pulse Ox O2 Delivery O2 Flow Rate FiO2 12/11/16 08:04 70 16 141/90 96 Room Air General Appearance: Alert, Oriented X3, Cooperative, No Acute Distress HEENT/AIRWAY: MP 2 Lungs: Clear to Auscultation, Normal Air Movement Heart: Exam Unremarkable, Regular Rate/Rhythm, No Murmurs/Rubs/Gallops Plan Impression Patient chart reviewed, patient interviewed and anesthestic plan with risks, benefits, and alternatives discussed, and informed consent obtained. ASA Physical Status: ASA2 Mod Systemic Disease Anesthetic Plan: GA Bene/Risks/Altern/Consents: Yes HP Complete Prior to Induction: Yes Timothy Langley MD Dec 11, 2016 08:17
[2016-12-11] MEDS: Lactated Ringer's 1,000 ML IV ONE ×2 (08:46→08:47)
[2016-12-11 08:55] VITALS: BP 86/62; PULSE 61; RESP 17; O2SAT 97
[2016-12-11 09:05] VITALS: BP 142/67; PULSE 61; RESP 58; O2SAT 97
[2016-12-11 09:15] VITALS: BP 144/80; PULSE 58; RESP 56; O2SAT 97
--- NOTE | 2016-12-11 09:19 | PCM.ANEP1 ---
Post Anesthesia PACU Phase 1 Assessment Vital Signs Vital Signs Date Time Temp Pulse Resp B/P Pulse Ox O2 Delivery O2 Flow Rate FiO2 12/11/16 09:05 61 58 142/67 97 Room Air 12/11/16 08:55 61 17 86/62 97 Room Air 12/11/16 08:04 70 16 141/90 96 Room Air Anesthetic Administered: GA Level of Alertness: Awake, talking GAMING's with Equal Strength: Yes Pain: No Nausea or Vomiting: No CV Function & Hydration Stable: Yes Airway Device: Oxygen Delivery: Room Air Lungs: Clear to Auscultation, Normal Air Movement Dermatome Level: Full Sensation PACU Phase 2 Assessment Complications: No Follow up Care: No Patient Instructions Provided: N/A Timothy Langley MD Dec 11, 2016 09:18
--- NOTE | 2016-12-11 09:24 | ENDO ---
[address] [address] ENDOSCOPY PROCEDURE PATIENT: DUANE CAAL : 1945 MR#: [id number] ADMIT: 12/11/2016 JOB ID: [id number] DATE: 12/11/2016 TYPE OF OPERATION: 1. Esophagogastroduodenoscopy with biopsy. 2. Colonoscopy with biopsy. PREOPERATIVE DIAGNOSIS(ES): Abdominal pain. Colorectal cancer screening. POSTOPERATIVE DIAGNOSIS(ES): 1. Normal upper endoscopy status post biopsy. 2. Mild sigmoid diverticulosis. 3. Small internal hemorrhoids. 4. A 2 mm sigmoid polyp removed by cold biopsy forceps. ANESTHESIA: Monitored anesthesia care. COMPLICATIONS: None. BLOOD LOSS: Minimal. DESCRIPTION OF PROCEDURE: After risks and benefits were explained to the patient, informed consent was obtained. After anesthesia administered, an upper endoscope was then inserted into the mouth, intubating through esophagus, stomach, second portion of duodenum. Mucosa carefully examined. After the procedure was done, the scope withdrawn and procedure terminated. Colonoscope was then inserted from the rectum to the cecum. Mucosa carefully examined. Prep of the patient was fair. After the procedure was done, the scope was withdrawn and procedure terminated. FINDINGS: Upon inspection of the esophagus, the esophagus was normal without masses, ulcers or lesions. Z-line located at 40 cm from incisors. Upon entering the stomach, the stomach also appeared normal without masses, ulcers or lesions. Retroflexion normal. Duodenal bulb, first and second portion normal. Biopsies taken of the duodenum, antrum, body of stomach. Upon inspection of the anus, no masses, hemorrhoids, ulcers, or fissures that were seen. Throughout the entire examination, there was a 2 mm sigmoid polyp removed by cold biopsy forceps. There was mild sigmoid diverticulosis. Retroflexion showed small internal hemorrhoids. IMPRESSION: 1. Small internal hemorrhoids. 2. Mild sigmoid diverticulosis. 3. A 2 mm sigmoid polyp removed by cold biopsy forceps. 4. Normal upper endoscopy status post biopsy. RECOMMENDATIONS: 1. Await pathology results. 2. Followup in GI clinic as needed. 3. High fiber diet.
--- NOTE | 2016-12-13 14:53 | PATH ---
SURGICAL PATHOLOGY Attending Physician:Timothy Funez MD CASE STATUS: Signed Out PATIENT NAME: DUANE CAAL PID: [id number] : 1945 DATE COLLECTED:12/11/2016 19:31 SPECIMEN: 1: Duodenum, Biopsy 2: Stomach, Antrum, Biopsy 3: Gastric, Biopsy 4: Colon, Polyp CLINICAL HISTORY: 1). DUODENAL BIOPSY 2). ANTRUM BIOPSY 3). GASTRIC BODY BIOPSY 4). SIGMOID POLYP FINAL DIAGNOSIS: 1. Duodenal Biopsy: Duodenal mucosa with no diagnostic abnormality. Negative for active inflammation, features of sprue, dysplasia and malignancy. 2. Antrum, Biopsy: Antral-type mucosa with no diagnostic abnormality. Negative for Helicobacter pylori microorganisms. Negative for intestinal metaplasia. Negative for dysplasia and malignancy. 3. Gastric Body Biopsy: Gastric body-type mucosa with no diagnostic abnormality. Negative for Helicobacter pylori microorganisms. Negative for intestinal metaplasia. Negative for dysplasia and malignancy. 4. Sigmoid Polyp, Biopsy: Hyperplastic polyp in 2 of 2 fragments. ICD10: D12.6 GROSS DESCRIPTION: The specimen is received in four formalin filled containers labeled with the patient's name. 1). The specimen is labeled "duodenal" and consists of 2 portions of tissue which aggregate to 0.3 x 0.3 x 0.2 CM. The specimen is entirely submitted in cassette 1A. 2). The specimen is labeled "antrum" and consists of 2 portions of tissue which aggregate to 0.3 x 0.2 x 0.2 CM. The specimen is entirely submitted in cassette 2A. 3). The specimen is labeled "gastric body" and consists of 2 portions of tissue which aggregate to 0.4 x 0.2 x 0.2 CM. The specimen is entirely submitted in cassette 3A. 4). The specimen is labeled "sigmoid polyp" and consists of 2 portions of tissue which aggregate to 0.3 x 0.3 x 0.3 CM. The specimen is entirely submitted in cassette 4A. 12/11/2016RI ICD-9 CODES: CPT CODES: 1: 01187 2: 32102 3: 77639 4: 33882 Electronically Signed Out Dewey Hermosillo MD [facility] Pathology [facility] [address] [place] [id number] Technical component performed at [facility], [facility] [address], [place], [address]
== END | disposition home or self-care (01) ==
LOC: END 02:21
PROVIDERS: ATTEND Internal Medicine Gastroenterology
DX: Z12.11 Encounter for screening for malignant neoplasm of colon (principal); K63.5 Polyp of colon; R10.84 Generalized abdominal pain; K57.30 Diverticulosis of large intestine without perforation or abscess without bleeding; K64.8 Other hemorrhoids; M54.89 Other dorsalgia; Z79.891 Long term (current) use of opiate analgesic; F17.210 Nicotine dependence, cigarettes, uncomplicated
CPT/HCPCS: 43239; 45380; 88305; J2704; J7120